=== PATIENT | male | born 1950 | race Caucasian/White ===

== ENCOUNTER 2020-06-29 07:53 | Outpatient (REF) | payer MEDICARE, SELFPAY ==
[2020-06-29 09:22] LABS: MANUAL DIFF FLAG NO
[2020-06-29 09:36] LABS: Basophils Absolute Auto 0.1 X10*3/uL (0.0-0.2); Basophils Percent Auto 0.9 % (0-2); Eosinophils Absolute Auto 0.2 X10*3/uL (0.0-0.4); Eosinophils Percent Auto 2.6 % (0-4); Hematocrit 45.7 % (42-52); Hemoglobin 14.9 g/dl (14.0-18.0); Imm Gran Abs Auto 0.03 X10*3/uL (0.00-0.03); Imm Gran Pct Auto 0.4 % (0.0-0.4); Lymphocytes Absolute Auto 1.9 X10*3/uL (1.2-4.9); Lymphocytes Percent Auto 27.2 % (20-40); Mean Corpuscular HGB Conc 32.6 g/dl (31.0-36.0); Mean Corpuscular Hemoglobin 31.2 pg (27.0-33.0); Mean Corpuscular Volume 95.6 fL (80-98); Mean Platelet Volume 10.4 fL (9.4-12.4); Monocytes Absolute Auto 0.6 X10*3/uL (0.1-1.2); Neutrophils Absolute Auto 4.3 X10*3/uL (2.0-8.3); Neutrophils Percent Auto 60.9 % (45-73); Platelet Count 196 X10*3/uL (160-400); Red Blood Count 4.78 X10*6/uL (4.60-5.80); Red Cell Distribution Width 13.7 % (11.0-16.0)
[2020-06-29 09:44] LABS: Estimated Average Glucose 111 mg/dL; Hemoglobin A1C 136.8139 umol/L; Hemoglobin A1c % 5.5 %
[2020-06-29 10:09] LABS: Alanine Aminotransferase 19 U/L (0-40); Albumin Level 4.3 g/dL (3.5-5.0); Alkaline Phosphatase 60 U/L (39-117); Anion Gap 10 (12-20); Aspartate Amino Transferase 18 U/L (5-37); Bilirubin Total 0.3 mg/dL (0.0-1.0); Blood Urea Nitrogen 14 mg/dL (9-16); Calcium 8.8 mg/dL (8.4-10.2); Carbon Dioxide 28 mmol/L (22-29); Chloride 108 mmol/L (96-108); Cholesterol 185 mg/dL; Estimated Glomerular Filt Rate > 60; Glucose Fasting 114 mg/dL (60-99); HDL Cholesterol 56 mg/dL; LDL Cholesterol Calculated 118 mg/dl; Potassium 4.1 mmol/l (3.3-5.1); Sodium 142 mmol/L (135-145); Total Protein 6.8 g/dL (6.5-8.0); Triglycerides 58 mg/dL
== END 2020-06-29 07:54 | disposition home or self-care (01) ==
LOC: HO.LAB 07:53
PROVIDERS: PCP Internal Medicine Medical Oncology; Visit Provider Internal Medicine Medical Oncology
DX: E78.5 Hyperlipidemia, unspecified (principal); E11.9 Type 2 diabetes mellitus without complications; I10 Essential (primary) hypertension
CPT/HCPCS: 36415; 80053; 80061; 83036; 85025

== ENCOUNTER 2020-09-23 07:59 | Outpatient (REF) | payer MEDICARE, SELFPAY ==
[2020-09-23 09:04] LABS: MANUAL DIFF FLAG NO
[2020-09-23 09:11] LABS: Basophils Absolute Auto 0.1 X10*3/uL (0.0-0.2); Basophils Percent Auto 0.9 % (0-2); Eosinophils Absolute Auto 0.2 X10*3/uL (0.0-0.4); Eosinophils Percent Auto 2.5 % (0-4); Hematocrit 46.2 % (42-52); Hemoglobin 15.3 g/dl (14.0-18.0); Imm Gran Abs Auto 0.01 X10*3/uL (0.00-0.03); Imm Gran Pct Auto 0.1 % (0.0-0.4); Lymphocytes Absolute Auto 1.8 X10*3/uL (1.2-4.9); Lymphocytes Percent Auto 23.1 % (20-40); Mean Corpuscular HGB Conc 33.1 g/dl (31.0-36.0); Mean Corpuscular Volume 93.5 fL (80-98); Monocytes Absolute Auto 0.6 X10*3/uL (0.1-1.2); Monocytes Percent Auto 8.1 % (2-11); Neutrophils Percent Auto 65.3 % (45-73); Platelet Count 167 X10*3/uL (160-400); Red Blood Count 4.94 X10*6/uL (4.60-5.80); Red Cell Distribution Width 13.6 % (11.0-16.0); White Blood Count 7.7 X10*3/uL (4.8-10.8)
[2020-09-23 09:28] LABS: Estimated Average Glucose 108 mg/dL; Hemoglobin A1c % 5.4 %
[2020-09-23 09:42] LABS: Alanine Aminotransferase 20 U/L (0-40); Albumin Level 4.4 g/dL (3.5-5.0); Alkaline Phosphatase 72 U/L (39-117); Anion Gap 12 (12-20); Aspartate Amino Transferase 17 U/L (5-37); Bilirubin Total 0.7 mg/dL (0.0-1.0); Blood Urea Nitrogen 16 mg/dL (9-16); Carbon Dioxide 28 mmol/L (22-29); Chloride 107 mmol/L (96-108); Cholesterol 202 mg/dL; Estimated Glomerular Filt Rate > 60; Glucose Fasting 108 mg/dL (60-99); HDL Cholesterol 55 mg/dL; LDL Cholesterol Calculated 133 mg/dl; Potassium 4.3 mmol/l (3.3-5.1); Sodium 143 mmol/L (135-145); Triglycerides 74 mg/dL
== END 2020-09-23 08:00 | disposition home or self-care (01) ==
LOC: HO.LAB 07:59
PROVIDERS: PCP Internal Medicine Medical Oncology; Visit Provider Internal Medicine Medical Oncology
DX: I10 Essential (primary) hypertension (principal); E78.5 Hyperlipidemia, unspecified; E11.9 Type 2 diabetes mellitus without complications
CPT/HCPCS: 36415; 80053; 80061; 83036; 85025

== ENCOUNTER 2021-01-25 09:00 | Outpatient (REF) | payer MEDICARE, SELFPAY ==
[2021-01-25 09:41] LABS: MANUAL DIFF FLAG NO
[2021-01-25 09:46] LABS: Basophils Absolute Auto 0.1 X10*3/uL (0.0-0.2); Basophils Percent Auto 0.8 % (0-2); Eosinophils Absolute Auto 0.1 X10*3/uL (0.0-0.4); Eosinophils Percent Auto 1.2 % (0-4); Hematocrit 44.1 % (42-52); Hemoglobin 14.9 g/dl (14.0-18.0); Imm Gran Abs Auto 0.02 X10*3/uL (0.00-0.03); Imm Gran Pct Auto 0.3 % (0.0-0.4); Lymphocytes Absolute Auto 1.6 X10*3/uL (1.2-4.9); Lymphocytes Percent Auto 21.5 % (20-40); Mean Corpuscular HGB Conc 33.8 g/dl (31.0-36.0); Mean Corpuscular Hemoglobin 31.4 pg (27.0-33.0); Mean Platelet Volume 10.1 fL (9.4-12.4); Monocytes Absolute Auto 0.5 X10*3/uL (0.1-1.2); Monocytes Percent Auto 7.3 % (2-11); Neutrophils Percent Auto 68.9 % (45-73); Platelet Count 169 X10*3/uL (160-400); Red Blood Count 4.74 X10*6/uL (4.60-5.80); Red Cell Distribution Width 14.1 % (11.0-16.0); White Blood Count 7.3 X10*3/uL (4.8-10.8)
[2021-01-25 10:14] LABS: Alanine Aminotransferase 26 U/L (0-40); Albumin Level 4.4 g/dL (3.5-5.0); Alkaline Phosphatase 72 U/L (39-117); Anion Gap 13 (12-20); Aspartate Amino Transferase 21 U/L (5-37); Bilirubin Total 0.6 mg/dL (0.0-1.0); Blood Urea Nitrogen 16 mg/dL (9-16); Calcium 9.1 mg/dL (8.4-10.2); Carbon Dioxide 26 mmol/L (22-29); Chloride 107 mmol/L (96-108); Cholesterol 209 mg/dL; Estimated Glomerular Filt Rate > 60; Glucose Fasting 130 mg/dL (60-99); HDL Cholesterol 57 mg/dL; LDL Cholesterol Calculated 139 mg/dl; Potassium 4.2 mmol/L (3.3-5.1); Sodium 142 mmol/L (135-145); Triglycerides 65 mg/dL
== END 2021-01-25 09:01 | disposition home or self-care (01) ==
LOC: HO.LAB 09:00
PROVIDERS: PCP Internal Medicine Medical Oncology; Visit Provider Internal Medicine Medical Oncology
DX: I10 Essential (primary) hypertension (principal); E11.9 Type 2 diabetes mellitus without complications; E78.5 Hyperlipidemia, unspecified
CPT/HCPCS: 36415; 80053; 80061; 85025

== ENCOUNTER 2021-07-13 08:31 | Outpatient (REF) | payer MEDICARE, SELFPAY ==
[2021-07-13 08:43] LABS: MANUAL DIFF FLAG NO
[2021-07-13 09:28] LABS: Basophils Absolute Auto 0.1 X10*3/uL (0.0-0.2); Basophils Percent Auto 0.9 % (0-2); Eosinophils Absolute Auto 0.2 X10*3/uL (0.0-0.4); Eosinophils Percent Auto 2.3 % (0-4); Hematocrit 45.7 % (42.0-52.0); Hemoglobin 15.4 g/dl (14.0-18.0); Imm Gran Abs Auto 0.02 X10*3/uL (0.00-0.03); Imm Gran Pct Auto 0.3 % (0.0-0.4); Lymphocytes Absolute Auto 1.8 X10*3/uL (1.2-4.9); Lymphocytes Percent Auto 24.6 % (20-40); Mean Corpuscular HGB Conc 33.7 g/dl (31.0-36.0); Mean Corpuscular Hemoglobin 31.8 pg (27.0-33.0); Mean Corpuscular Volume 94.4 fL (80.0-98.0); Mean Platelet Volume 10.1 fL (9.4-12.4); Monocytes Absolute Auto 0.6 X10*3/uL (0.1-1.2); Monocytes Percent Auto 7.7 % (2-11); Neutrophils Absolute Auto 4.73 x10*3/uL (2.0-8.3); Neutrophils Percent Auto 64.2 % (45-73); Platelet Count 172 X10*3/uL (160-400); Red Blood Count 4.84 X10*6/uL (4.60-5.80); Red Cell Distribution Width 13.8 % (11.0-16.0); White Blood Count 7.4 X10*3/uL (4.8-10.8)
[2021-07-13 09:37] LABS: Estimated Average Glucose 111 mg/dL; Hemoglobin A1c % 5.5 %
[2021-07-13 10:01] LABS: Alanine Aminotransferase 33 U/L (0-40); Albumin Level 4.5 g/dL (3.5-5.0); Alkaline Phosphatase 70 U/L (39-117); Anion Gap 13 (12-20); Aspartate Amino Transferase 26 U/L (5-37); Bilirubin Total 0.8 mg/dL (0.0-1.0); Blood Urea Nitrogen 18 mg/dL (9-16); Calcium 9.6 mg/dL (8.4-10.2); Carbon Dioxide 28 mmol/L (22-29); Chloride 106 mmol/L (96-108); Cholesterol 223 mg/dL; Estimated Glomerular Filt Rate > 60; Glucose Fasting 95 mg/dL (60-99); HDL Cholesterol 55 mg/dL; LDL Cholesterol Calculated 153 mg/dl; Potassium 5.3 mmol/L (3.3-5.1); Sodium 142 mmol/L (135-145); Total Protein 7.1 g/dL (6.5-8.0); Triglycerides 75 mg/dL
[2021-07-13 10:24] LABS: Prostate Specific Antigen 0.27 ng/mL (<0.05-4.0)
== END 2021-07-13 08:32 | disposition home or self-care (01) ==
LOC: HO.LAB 08:31
PROVIDERS: PCP Internal Medicine Medical Oncology; Visit Provider Internal Medicine Medical Oncology
DX: I10 Essential (primary) hypertension (principal); E11.9 Type 2 diabetes mellitus without complications; E78.5 Hyperlipidemia, unspecified; Z12.5 Encounter for screening for malignant neoplasm of prostate
CPT/HCPCS: 36415; 80053; 80061; 83036; 84153; 85025

== ENCOUNTER 2021-12-27 08:01 | Outpatient (REF) | payer MEDICARE, SELFPAY ==
[2021-12-27 08:17] LABS: MANUAL DIFF FLAG NO
[2021-12-27 08:33] LABS: Basophils Absolute Auto 0.1 X10*3/uL (0.0-0.2); Basophils Percent Auto 0.9 % (0-2); Eosinophils Absolute Auto 0.1 X10*3/uL (0.0-0.4); Eosinophils Percent Auto 1.7 % (0-4); Hematocrit 45.9 % (42.0-52.0); Hemoglobin 15.3 g/dl (14.0-18.0); Imm Gran Abs Auto 0.02 X10*3/uL (0.00-0.03); Imm Gran Pct Auto 0.3 % (0.0-0.4); Lymphocytes Absolute Auto 1.9 X10*3/uL (1.2-4.9); Lymphocytes Percent Auto 27.4 % (20-40); Mean Corpuscular HGB Conc 33.3 g/dl (31.0-36.0); Mean Corpuscular Hemoglobin 31.2 pg (27.0-33.0); Mean Corpuscular Volume 93.7 fL (80.0-98.0); Monocytes Absolute Auto 0.5 X10*3/uL (0.1-1.2); Monocytes Percent Auto 7.6 % (2-11); Neutrophils Absolute Auto 4.3 x10*3/uL (2.0-8.3); Neutrophils Percent Auto 62.1 % (45-73); Platelet Count 177 X10*3/uL (160-400); Red Cell Distribution Width 13.9 % (11.0-16.0)
[2021-12-27 08:41] LABS: Estimated Average Glucose 111 mg/dL; Hemoglobin A1c % 5.5 %
[2021-12-27 08:58] LABS: Alanine Aminotransferase 21 U/L (0-40); Albumin Level 4.2 g/dL (3.5-5.0); Alkaline Phosphatase 61 U/L (39-117); Anion Gap 13 (12-20); Aspartate Amino Transferase 18 U/L (5-37); Bilirubin Total 0.7 mg/dL (0.0-1.0); Blood Urea Nitrogen 12 mg/dL (9-16); Calcium 9.4 mg/dL (8.4-10.2); Carbon Dioxide 25 mmol/L (22-29); Chloride 107 mmol/L (96-108); Cholesterol 192 mg/dL; Estimated Glomerular Filt Rate > 60; Glucose Random 131 mg/dL (60-115); HDL Cholesterol 56 mg/dL; LDL Cholesterol Calculated 127 mg/dl; Potassium 4.2 mmol/L (3.3-5.1); Sodium 141 mmol/L (135-145); Triglycerides 49 mg/dL
[2021-12-27 09:19] LABS: Prostate Specific Antigen 0.31 ng/mL (<0.05-4.0)
== END 2021-12-27 08:02 | disposition home or self-care (01) ==
LOC: HO.LAB 08:01
PROVIDERS: PCP Internal Medicine Medical Oncology; Visit Provider Internal Medicine Medical Oncology
DX: Z12.5 Encounter for screening for malignant neoplasm of prostate (principal); N40.0 Benign prostatic hyperplasia without lower urinary tract symptoms; E66.9 Obesity, unspecified; E11.9 Type 2 diabetes mellitus without complications; E78.5 Hyperlipidemia, unspecified
CPT/HCPCS: 36415; 80053; 80061; 83036; 84153; 85025

== ENCOUNTER 2022-09-27 09:19 | Outpatient (REF) | payer MEDICARE, SELFPAY ==
[2022-09-27 10:31] LABS: MANUAL DIFF FLAG NO
[2022-09-27 10:33] LABS: Basophils Absolute Auto 0.1 X10*3/uL (0.0-0.2); Basophils Percent Auto 1.2 % (0-2); Eosinophils Absolute Auto 0.1 X10*3/uL (0.0-0.4); Eosinophils Percent Auto 1.8 % (0-4); Hematocrit 45.6 % (42.0-52.0); Hemoglobin 15.5 g/dl (14.0-18.0); Imm Gran Abs Auto 0.02 X10*3/uL (0.00-0.03); Imm Gran Pct Auto 0.3 % (0.0-0.4); Lymphocytes Absolute Auto 1.7 X10*3/uL (1.2-4.9); Lymphocytes Percent Auto 24.9 % (20-40); Mean Corpuscular Hemoglobin 30.9 pg (27.0-33.0); Mean Corpuscular Volume 90.8 fL (80.0-98.0); Mean Platelet Volume 10.5 fL (9.4-12.4); Monocytes Absolute Auto 0.5 X10*3/uL (0.1-1.2); Monocytes Percent Auto 7.2 % (2-11); Neutrophils Absolute Auto 4.4 x10*3/uL (2.0-8.3); Neutrophils Percent Auto 64.6 % (45-73); Platelet Count 187 X10*3/uL (160-400); Red Blood Count 5.02 X10*6/uL (4.60-5.80); Red Cell Distribution Width 13.4 % (11.0-16.0); White Blood Count 6.8 X10*3/uL (4.8-10.8)
[2022-09-27 10:56] LABS: Alanine Aminotransferase 19 U/L (0-40); Albumin Level 4.2 g/dL (3.5-5.0); Alkaline Phosphatase 57 U/L (39-117); Anion Gap 12 (12-20); Aspartate Amino Transferase 17 U/L (5-37); Bilirubin Total 0.9 mg/dL (0.0-1.0); Blood Urea Nitrogen 14 mg/dL (9-16); Calcium 9.1 mg/dL (8.4-10.2); Carbon Dioxide 26 mmol/L (22-29); Chloride 106 mmol/L (96-108); Cholesterol 206 mg/dL; Estimated Glomerular Filt Rate > 60; Glucose Fasting 131 mg/dL (60-99); HDL Cholesterol 51 mg/dL; LDL Cholesterol Calculated 138 mg/dl; Potassium 3.7 mmol/L (3.3-5.1); Sodium 140 mmol/L (135-145); Total Protein 6.7 g/dL (6.5-8.0); Triglycerides 88 mg/dL
[2022-09-27 11:04] LABS: Prostate Specific Antigen 0.36 ng/mL (<0.05-4.0)
[2022-09-27 14:35] LABS: Creatinine Urine 151.41 mg/dL; Microalbum/Creatinine Ratio Ur 21.1 ug/mg cr
== END 2022-09-27 09:20 | disposition home or self-care (01) ==
LOC: HO.10HDL 09:19
PROVIDERS: Visit Provider Internal Medicine Medical Oncology
DX: Z12.5 Encounter for screening for malignant neoplasm of prostate (principal); I10 Essential (primary) hypertension; E11.9 Type 2 diabetes mellitus without complications; N40.0 Benign prostatic hyperplasia without lower urinary tract symptoms
CPT/HCPCS: 36415; 80053; 80061; 82043; 84153; 85025

== ENCOUNTER 2022-12-26 09:11 | Outpatient (REF) | payer MEDICARE, SELFPAY ==
[2022-12-26 09:24] LABS: MANUAL DIFF FLAG NO
[2022-12-26 10:37] LABS: Basophils Absolute Auto 0.1 X10*3/uL (0.0-0.2); Basophils Percent Auto 1.1 % (0-2); Eosinophils Absolute Auto 0.2 X10*3/uL (0.0-0.4); Eosinophils Percent Auto 2.3 % (0-4); Hematocrit 45.8 % (42.0-52.0); Hemoglobin 15.1 g/dl (14.0-18.0); Imm Gran Abs Auto 0.02 X10*3/uL (0.00-0.03); Imm Gran Pct Auto 0.3 % (0.0-0.4); Lymphocytes Absolute Auto 1.9 X10*3/uL (1.2-4.9); Mean Corpuscular Hemoglobin 30.7 pg (27.0-33.0); Mean Corpuscular Volume 93.1 fL (80.0-98.0); Mean Platelet Volume 10.7 fL (9.4-12.4); Monocytes Absolute Auto 0.6 X10*3/uL (0.1-1.2); Monocytes Percent Auto 7.9 % (2-11); Neutrophils Absolute Auto 4.7 x10*3/uL (2.0-8.3); Neutrophils Percent Auto 62.4 % (45-73); Platelet Count 196 X10*3/uL (160-400); Red Blood Count 4.92 X10*6/uL (4.60-5.80); Red Cell Distribution Width 13.8 % (11.0-16.0); White Blood Count 7.5 X10*3/uL (4.8-10.8)
[2022-12-26 10:45] LABS: Estimated Average Glucose 114 mg/dL; Hemoglobin A1c % 5.6 %
[2022-12-26 11:11] LABS: Alanine Aminotransferase 15 U/L (0-40); Albumin Level 4.1 g/dL (3.5-5.0); Alkaline Phosphatase 64 U/L (39-117); Anion Gap 13 (12-20); Aspartate Amino Transferase 15 U/L (5-37); Bilirubin Total 0.8 mg/dL (0.0-1.0); Blood Urea Nitrogen 16 mg/dL (9-16); Calcium 8.8 mg/dL (8.4-10.2); Carbon Dioxide 25 mmol/L (22-29); Chloride 108 mmol/L (96-108); Cholesterol 190 mg/dL; Estimated Glomerular Filt Rate > 60; Glucose Fasting 115 mg/dL (60-99); HDL Cholesterol 45 mg/dL; LDL Cholesterol Calculated 133 mg/dl; Potassium 4.4 mmol/L (3.3-5.1); Sodium 142 mmol/L (135-145); Total Protein 6.3 g/dL (6.5-8.0); Triglycerides 61 mg/dL
[2022-12-26 11:33] LABS: Creatinine Urine 194.29 mg/dL; Microalbum/Creatinine Ratio Ur 6.6 ug/mg cr
== END 2022-12-26 09:12 | disposition home or self-care (01) ==
LOC: HO.LAB 09:11
PROVIDERS: PCP Internal Medicine Medical Oncology; Visit Provider Internal Medicine Medical Oncology
DX: Z00.00 Encounter for general adult medical examination without abnormal findings (principal); I10 Essential (primary) hypertension; E78.5 Hyperlipidemia, unspecified; E11.9 Type 2 diabetes mellitus without complications
CPT/HCPCS: 36415; 80053; 80061; 82043; 83036; 85025

== ENCOUNTER 2023-03-27 07:47 | Outpatient (REF) | payer MEDICARE, SELFPAY ==
[2023-03-27 08:09] LABS: MANUAL DIFF FLAG NO
[2023-03-27 09:08] LABS: Basophils Absolute Auto 0.1 X10*3/uL (0.0-0.2); Basophils Percent Auto 0.9 % (0-2); Eosinophils Absolute Auto 0.1 X10*3/uL (0.0-0.4); Eosinophils Percent Auto 0.8 % (0-4); Hematocrit 47.8 % (42.0-52.0); Imm Gran Abs Auto 0.03 X10*3/uL (0.00-0.03); Imm Gran Pct Auto 0.4 % (0.0-0.4); Lymphocytes Absolute Auto 1.6 X10*3/uL (1.2-4.9); Lymphocytes Percent Auto 18.7 % (20-40); Mean Corpuscular HGB Conc 33.5 g/dl (31.0-36.0); Mean Corpuscular Hemoglobin 30.9 pg (27.0-33.0); Mean Corpuscular Volume 92.3 fL (80.0-98.0); Mean Platelet Volume 10.3 fL (9.4-12.4); Monocytes Absolute Auto 0.6 X10*3/uL (0.1-1.2); Neutrophils Absolute Auto 6.2 x10*3/uL (2.0-8.3); Neutrophils Percent Auto 72.2 % (45-73); Platelet Count 189 X10*3/uL (160-400); Red Blood Count 5.18 X10*6/uL (4.60-5.80); Red Cell Distribution Width 13.9 % (11.0-16.0); White Blood Count 8.6 X10*3/uL (4.8-10.8)
[2023-03-27 09:15] LABS: Estimated Average Glucose 111 mg/dL; Hemoglobin A1C 150.3628 umol/L; Hemoglobin A1c % 5.5 %
[2023-03-27 09:47] LABS: Alanine Aminotransferase 19 U/L (0-40); Albumin Level 4.2 g/dL (3.5-5.0); Alkaline Phosphatase 64 U/L (39-117); Anion Gap 14 (12-20); Aspartate Amino Transferase 15 U/L (5-37); Bilirubin Total 0.5 mg/dL (0.0-1.0); Blood Urea Nitrogen 14 mg/dL (9-16); Calcium 9.3 mg/dL (8.4-10.2); Carbon Dioxide 25 mmol/L (22-29); Chloride 107 mmol/L (96-108); Estimated Glomerular Filt Rate > 60; Glucose Random 143 mg/dL (60-115); Potassium 4.1 mmol/L (3.3-5.1); Sodium 142 mmol/L (135-145); Total Protein 7.2 g/dL (6.5-8.0)
== END 2023-03-27 07:48 | disposition home or self-care (01) ==
LOC: HO.LAB 07:47
PROVIDERS: PCP Internal Medicine Medical Oncology; Visit Provider Internal Medicine Medical Oncology
DX: I10 Essential (primary) hypertension (principal); E11.9 Type 2 diabetes mellitus without complications
CPT/HCPCS: 36415; 80053; 83036; 85025

== ENCOUNTER 2023-04-13 12:23 | Outpatient (REF) | payer MEDICARE, SELFPAY | END 2023-04-13 12:24 | disposition home or self-care (01) | LOC: HO.LAB 12:23 | PROVIDERS: PCP Internal Medicine Medical Oncology; Visit Provider Internal Medicine Medical Oncology | DX: Z13.89 Encounter for screening for other disorder (principal) ==

== ENCOUNTER 2024-03-07 09:08 | Outpatient (REF) | payer MEDICARE, SELFPAY ==
[2024-03-07 09:25] LABS: MANUAL DIFF FLAG NO
[2024-03-07 09:45] LABS: Basophils Absolute Auto 0.1 X10*3/uL (0.0-0.2); Basophils Percent Auto 0.8 % (0-2); Eosinophils Absolute Auto 0.1 X10*3/uL (0.0-0.4); Eosinophils Percent Auto 1.4 % (0-4); Imm Gran Abs Auto 0.03 X10*3/uL (0.00-0.03); Imm Gran Pct Auto 0.4 % (0.0-0.4); Lymphocytes Absolute Auto 1.8 X10*3/uL (1.2-4.9); Lymphocytes Percent Auto 23.8 % (20-40); Mean Corpuscular Hemoglobin 31.8 pg (27.0-33.0); Mean Corpuscular Volume 93.4 fL (80.0-98.0); Mean Platelet Volume 9.9 fL (9.4-12.4); Monocytes Absolute Auto 0.5 X10*3/uL (0.1-1.2); Monocytes Percent Auto 5.9 % (2-11); Neutrophils Absolute Auto 5.2 x10*3/uL (2.0-8.3); Neutrophils Percent Auto 67.7 % (45-73); Platelet Count 172 X10*3/uL (160-400); Red Blood Count 5.03 X10*6/uL (4.60-5.80); Red Cell Distribution Width 14.5 % (11.0-16.0); White Blood Count 7.7 X10*3/uL (4.8-10.8)
[2024-03-07 09:58] LABS: Estimated Average Glucose 120 mg/dL; Hemoglobin A1c % 5.8 % (<6.0)
[2024-03-07 10:22] LABS: Creatinine Urine 162.22 mg/dL
[2024-03-07 10:26] LABS: Alanine Aminotransferase 16 U/L (0-40); Albumin Level 4.3 g/dL (3.5-5.0); Alkaline Phosphatase 66 U/L (39-117); Anion Gap 12 (12-20); Aspartate Amino Transferase 15 U/L (5-37); Bilirubin Total 0.6 mg/dL (0.0-1.0); Blood Urea Nitrogen 15 mg/dL (9-16); Calcium 9.3 mg/dL (8.4-10.2); Carbon Dioxide 28 mmol/L (22-29); Chloride 108 mmol/L (96-108); Cholesterol 193 mg/dL (<200); Estimated Glomerular Filt Rate > 60; Glucose Fasting 116 mg/dL (60-99); HDL Cholesterol 57 mg/dL (>40); LDL Cholesterol Calculated 124 mg/dL (<100); Potassium 4.7 mmol/L (3.3-5.1); Sodium 143 mmol/L (135-145); Total Protein 7.3 g/dL (6.5-8.0); Triglycerides 60 mg/dL (<150)
[2024-03-07 10:43] LABS: Prostate Specific Antigen 0.37 ng/mL (<0.05-4.0)
== END 2024-03-07 09:09 | disposition home or self-care (01) ==
LOC: HO.LAB 09:08
PROVIDERS: PCP Internal Medicine Medical Oncology; Visit Provider Internal Medicine Medical Oncology
DX: I10 Essential (primary) hypertension (principal); E11.9 Type 2 diabetes mellitus without complications; E66.9 Obesity, unspecified; N40.0 Benign prostatic hyperplasia without lower urinary tract symptoms; Z12.5 Encounter for screening for malignant neoplasm of prostate
CPT/HCPCS: 36415; 80053; 80061; 82043; 82570; 83036; 84153; 85025

== ENCOUNTER 2024-03-26 04:03 | Emergency (ER) | payer MEDICARE, SELFPAY ==
--- NOTE | ~2024-03-26 | CT_ITS ---
EXAMINATION: CT ANGIOGRAM NECK AND HEAD CLINICAL INFORMATION: Dysarthria. COMPARISON: None available. TECHNIQUE: Test bolus sequences followed by administration of 70 mL of Omnipaque 350 intravenous contrast. Helical imaging was performed in the axial plane of the neck. The data was processed at the lead technologist in cytogenetics workstation for generation of MIP sequences. Three-dimensional volume rendered reformatted images were also generated at an offline 3-D workstation. This CT examination was performed using dose optimization techniques as appropriate, variously including the following: *Automated exposure control *Adjustment of mA and/or kV according to patient size (this includes techniques or standardized protocols for targeted exams where dose is matched to indication/reason for exam; i.e. extremities or head) *Use of iterative reconstruction technique DLP: 1733.85 mGy-cm FINDINGS: CT HEAD: There is cerebral volume loss with prominence of the lateral and the third ventricles. The cortical sulci are widened appropriately. The fourth ventricle and basal cisterns are normally outlined. There is moderate bilateral periventricular and central white matter diminished attenuation. 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 There is no acute territorial defect, hemorrhage or midline shift. The extra-axial spaces are unremarkable. Calvarium/scalp: Intact. Maxillofacial sinuses and mastoids: Clear as visualized. CTA NECK AND HEAD: There is mild atherosclerotic plaque of the aortic arch. A three-vessel branching pattern from the aortic arch is noted. The aortic arch branch vessels are patent. There is mild plaque at the left carotid bulb without significant narrowing. The common carotid, internal and external carotid arteries are patent. The left vertebral artery is dominant. Both vertebral arteries are patent. There is mild calcific plaque of the intracranial internal carotid arteries without significant narrowing. The middle cerebral and anterior cerebral arteries are patent. The distal vertebral arteries, basilar artery and branches and posterior cerebral arteries are patent. There is no evidence for aneurysm. CT/CT angio head neck IMPRESSION: 1. No acute intracranial abnormality. 2. There is cerebral volume loss and there is moderate white matter changes that are nonspecific, but may represent chronic small vessel ischemic changes. 3. There is mild atherosclerotic plaque of the aortic arch, left carotid bulb and intracranial internal carotid arteries without significant narrowing. 4. There is no evidence of significant stenosis, occlusion or aneurysm of the cervical and intracranial arterial vasculature.
[2024-03-26 04:05] VITALS: BP 186/96; PULSE 61; RESP 18; TEMP 36.8; O2SAT 96; BMI 32.0
--- NOTE | 2024-03-26 04:14 | ED.NEUROSD ---
HPI - Neuro Symptoms/Deficit General Chief Complaint: Neuro Symptoms/Deficit Stated Complaint: pt states to have had a mini stroke Time Seen by Provider: 03/26/24 04:14 Source: patient Mode of arrival: ambulatory Limitations: no limitations History of Present Illness ED Provider: alejandro LANDEROS Narrative: Patient is 74 years old with history of hypertension chronic smoker at 19:00 last night patient had a coughing bout after that patient had beef episode of slurred speech patient was not articulating right while speaking no other deficits by the time patient arrived to the ER there was no deficit noticed no facial asymmetry no headache on arrival blood pressure was 186/96 repeat 159/81 patient does not take any aspirin Related Data Previous Rx's ?Medication ?Instructions ?Recorded aspirin 81 mg tablet,delayed 81 mg PO DAILY #90 tabs 03/26/24 release (Reynaldo Low Dose Aspirin) Allergies Allergy/AdvReac Type Severity Reaction Status Date / Time No Known Allergies Allergy Unverified 03/26/24 04:05 [No Known Allergies*] PCN Allergy Unknown ? Uncoded 03/26/24 04:05 reaction/mother had anaphylactic reaction Review of Systems Review of Systems: Yes all other systems are reviewed and are negative [facility] Past Medical History Medical History (Updated 03/26/24 @ 06:37 by Barney Guo MD) Hypertension Social History Social History Alcohol intake: current Alcohol intake frequency: 3 or more drinks per day Alcohol type: hard liquor Smoked in Last 30 Days: Yes Use of substances other than those prescribed or required for medical reasons: No Advance Directives: No Advance Directives Information Provided: Yes Physical Exam Vital Signs: Vital Signs: Last Vital Signs Temp 97.5 F 03/26/24 06:47 Pulse 60 03/26/24 06:47 Resp 18 03/26/24 06:47 BP 168/95 H 03/26/24 06:47 Pulse Ox 95 03/26/24 06:47 O2 Del Method Room Air 03/26/24 06:47 BMI result Body Mass Index 32.0 Appearance: Alert. Oriented X3. No acute distress. Eyes: PERRLA, No Nystagmus ENT: Pharynx normal. Oral Mucosa moist Neck: Normal inspection. Neck supple. CVS: Normal heart rate and rhythm. Pulses normal. Respiratory: No respiratory distress. Equal air entry bilateral, no wheezing/rales/rhonchi Abdomen: Soft and nontender. Bowel sounds are present, no mass palpable, no CVA tenderness Skin: Skin warm and dry. Normal skin color. Normal skin turgor. Extremities: No lower extremity edema. No calf tenderness Neuro: Oriented X 3. No motor deficit. No sensory deficit.No cerebellar signs , cranial nerves II-XII intact normal speech articulation and comprehension Medications Administered Discontinued Medications Generic Name Dose Route Start Last Admin Trade Name Salinasq PRN Reason Stop Dose Admin Aspirin 81 mg 03/26/24 06:26 03/26/24 06:41 Aspirin 81 Mg Tab.Chew PO 03/26/24 06:27 81 mg ONCE ONE Administration Iohexol 70 ml 03/26/24 05:00 03/26/24 05:00 Iohexol 350 Mg/Ml 100 Ml Infus..Btl IV 03/26/24 05:01 70 ml ONCE ONE Administration Medical Decision Making Medical Decision Making [facility] Narrative: Patient's transient slurred speech with normal comprehension no speech abnormality noticed after coughing bout, after arrival in the ER possible TIA/mucus in the throat CTA negative for acute will prescribe patient aspirin Differential Diagnosis Differential Diagnoses: The differential diagnosis associated with the presentation includes TIA/CVA/ Admission/Observation Consideration of admission/observation: Escalation of care including admission/observation considered Lab Data [facility] Lab Attestation statement: I reviewed the patient's lab results. 03/26/24 04:24 03/26/24 04:24 Labs: Lab Results 03/26/24 Range/Units 04:24 WBC 7.2 (4.8-10.8) X10*3/uL RBC 4.87 (4.60-5.80) X10*6/uL Hgb 15.8 (14.0-18.0) g/dl Hct 44.8 (42.0-52.0) % MCV 92.0 (80.0-98.0) fL MCH 32.4 (27.0-33.0) pg MCHC 35.3 (31.0-36.0) g/dl RDW 14.6 (11.0-16.0) % Plt Count 156 L (160-400) X10*3/uL MPV 9.8 (9.4-12.4) fL Immature Gran % (Auto) 0.3 (0.0-0.4) % Neut % (Auto) 53.5 (45-73) % Lymph % (Auto) 33.9 (20-40) % [place] % (Auto) 8.4 (2-11) % Eos % (Auto) 2.8 (0-4) % Baso % (Auto) 1.1 (0-2) % Lymph # (Auto) 2.4 (1.2-4.9) X10*3/uL [place] # (Auto) 0.6 (0.1-1.2) X10*3/uL Eos # (Auto) 0.2 (0.0-0.4) X10*3/uL Baso # (Auto) 0.1 (0.0-0.2) X10*3/uL Abs Immat Gran (auto) 0.02 (0.00-0.03) X10*3/uL Absolute Neuts (auto) 3.8 (2.0-8.3) x10*3/uL Absolute Nucleated RBC 0.000 (0.0-0.012) X10*3/uL Nucleated RBC % (auto) 0.0 (0.0-0.2) /100WBC PT 11.0 L (11.1-13.3) SEC INR 0.9 (0.9-1.1) APTT 33.2 (26.0-36.8) SEC Sodium 143 (135-145) mmol/L Potassium 3.7 D (3.3-5.1) mmol/L Chloride 110 H (96-108) mmol/L Carbon Dioxide 23 (22-29) mmol/L Anion Gap 14 (12-20) BUN 14 (9-16) mg/dL Creatinine 0.94 (0.5-1.4) mg/dL Estim Creat Clear Calc 76.6 Estimated GFR > 60 Random Glucose 133 H (60-115) mg/dL Calcium 9.4 (8.4-10.2) mg/dL Total Bilirubin 0.3 (0.0-1.0) mg/dL AST 17 (5-37) U/L ALT 18 (0-40) U/L Alkaline Phosphatase 68 (39-117) U/L Total Protein 7.1 (6.5-8.0) g/dL Albumin 4.2 (3.5-5.0) g/dL Independent Interpretation I performed an independent interpretation of an: EKG and CT Scan Interpretation: Normal sinus rhythm heart rate 60 beats per minute normal interval normal axis no acute ST T wave changes Radiology Impression Discussion of test interpretation with radiology: I have reviewed the radiologist's reading. NIH Stroke Scale Internal: Initial- Upon Arrival Level of Consciousness: Alert Level of Consciousness Questions: Answers both questions correctly Level of Consciousness Commands: Performs both tasks correctly Best Gaze: Normal Visual: No visual loss Facial Palsy: Normal Motor Arm (Right): No drift Motor Arm (Left): No drift Motor Leg (Right): No drift Motor Leg (Left): No drift Limb Ataxia: Absent Sensory: Normal Best Language: No aphasia Dysarthia: Normal Extinction and Inattention: No abnormality Score: 0 Discharge Plan Discharge Clinical Impression: Transient cerebral ischemia Patient Disposition: Home, Self-Care Instructions: Transient Ischemic Attack (ED) Additional Instructions: Take baby aspirin daily Follow with neurologist/PCP Stop smoking Prescriptions: New aspirin [Reynaldo Low Dose Aspirin] 81 mg tablet,delayed release (DR/EC) 81 mg PO DAILY Qty: 90 0RF Referrals: Stephen Tony MD [Physician] - 1 week Interventions: ED Discharge Assessment Last Done: 03/26/24 06:47 Discharge Date/Time: 03/26/24 06:48 Print Language: Luxembourgish
--- NOTE | 2024-03-26 04:21 | ECG_ITS ---
Test Reason : NEURO SYMPTOMS Blood Pressure : / mmHG Vent. Rate : 060 BPM Atrial Rate : 060 BPM P-R Int : 160 ms QRS Dur : 100 ms QT Int : 400 ms P-R-T Axes : 000 -04 032 degrees QTc Int : 400 ms Normal sinus rhythm Normal ECG No previous ECGs available Referred By: Barney Guo Electronically Signed By:SULLY ROBERTS MD
[2024-03-26 04:30] LABS: MANUAL DIFF FLAG NO
[2024-03-26 04:31] LABS: Basophils Absolute Auto 0.1 X10*3/uL (0.0-0.2); Basophils Percent Auto 1.1 % (0-2); Eosinophils Absolute Auto 0.2 X10*3/uL (0.0-0.4); Eosinophils Percent Auto 2.8 % (0-4); Hematocrit 44.8 % (42.0-52.0); Hemoglobin 15.8 g/dl (14.0-18.0); Imm Gran Abs Auto 0.02 X10*3/uL (0.00-0.03); Imm Gran Pct Auto 0.3 % (0.0-0.4); Lymphocytes Absolute Auto 2.4 X10*3/uL (1.2-4.9); Lymphocytes Percent Auto 33.9 % (20-40); Mean Corpuscular HGB Conc 35.3 g/dl (31.0-36.0); Mean Corpuscular Hemoglobin 32.4 pg (27.0-33.0); Mean Platelet Volume 9.8 fL (9.4-12.4); Monocytes Absolute Auto 0.6 X10*3/uL (0.1-1.2); Monocytes Percent Auto 8.4 % (2-11); Neutrophils Absolute Auto 3.8 x10*3/uL (2.0-8.3); Neutrophils Percent Auto 53.5 % (45-73); Platelet Count 156 X10*3/uL (160-400); Red Blood Count 4.87 X10*6/uL (4.60-5.80); Red Cell Distribution Width 14.6 % (11.0-16.0); White Blood Count 7.2 X10*3/uL (4.8-10.8)
[2024-03-26 04:37] LABS: INTERNATIONAL NORM RATIO 0.9 (0.9-1.1)
[2024-03-26 04:39] LABS: Partial Thromboplastin Time 33.2 SEC (26.0-36.8)
[2024-03-26 04:46] LABS: Alanine Aminotransferase 18 U/L (0-40); Albumin Level 4.2 g/dL (3.5-5.0); Alkaline Phosphatase 68 U/L (39-117); Anion Gap 14 (12-20); Aspartate Amino Transferase 17 U/L (5-37); Bilirubin Total 0.3 mg/dL (0.0-1.0); Blood Urea Nitrogen 14 mg/dL (9-16); Calcium 9.4 mg/dL (8.4-10.2); Carbon Dioxide 23 mmol/L (22-29); Chloride 110 mmol/L (96-108); Creatinine Clr Calc Pharmacy 76.6; Estimated Glomerular Filt Rate > 60; Glucose Random 133 mg/dL (60-115); Potassium 3.7 mmol/L (3.3-5.1); Sodium 143 mmol/L (135-145); Total Protein 7.1 g/dL (6.5-8.0)
[2024-03-26] MEDS: iohexoL 350 MG/ML 100 ML INFUS..BTL 70 ML IV (05:00)
[2024-03-26 05:05] VITALS: BP 159/81; PULSE 60; RESP 20; TEMP 36.4; O2SAT 94
[2024-03-26] MEDS: Aspirin 81 MG TAB.CHEW PO (06:41)
[2024-03-26 06:47] VITALS: BP 168/95; PULSE 60; RESP 18; TEMP 36.4; O2SAT 95
== END 2024-03-26 06:48 | disposition home or self-care (01) ==
PROVIDERS: Emergency Provider Internal Medicine
DX: G45.9 Transient cerebral ischemic attack, unspecified (principal); R05.9 Cough, unspecified; R47.1 Dysarthria and anarthria; F17.200 Nicotine dependence, unspecified, uncomplicated; Z79.899 Other long term (current) drug therapy
CPT/HCPCS: 36415; 70496; 70498; 80053; 85025; 85610; 85730; 93005; 99284; 99285; Q9967

== ENCOUNTER → 2024-03-26 04:21 | Outpatient (BNV) | payer MEDICARE, SELFPAY | PROVIDERS: Emergency Provider Internal Medicine; Visit Provider Internal Medicine Cardiovascular Disease | DX: R47.1 Dysarthria and anarthria (principal) | CPT/HCPCS: 93010 ==

== ENCOUNTER 2024-04-18 08:49 | Outpatient (REF) | payer MEDICARE, SELFPAY ==
--- NOTE | ~2024-04-18 | XR_ITS ---
EXAMINATION: XR CHEST CLINICAL INFORMATION: Cough COMPARISON: None available. TECHNIQUE: 2 views of the chest were obtained. FINDINGS: No significant abnormality is noted involving the heart, lungs, mediastinum, bony thorax or soft tissues. The aorta is unfolded, degenerative changes are present in the spine. No consolidations, lung masses or pleural effusions. XR/XR chest 2V IMPRESSION: Unremarkable examination.
[2024-04-18 09:04] LABS: MANUAL DIFF FLAG NO
[2024-04-18 09:37] LABS: Basophils Absolute Auto 0.1 X10*3/uL (0.0-0.2); Basophils Percent Auto 0.8 % (0-2); Eosinophils Absolute Auto 0.1 X10*3/uL (0.0-0.4); Eosinophils Percent Auto 1.2 % (0-4); Hematocrit 46.4 % (42.0-52.0); Hemoglobin 15.8 g/dl (14.0-18.0); Imm Gran Abs Auto 0.04 X10*3/uL (0.00-0.03); Imm Gran Pct Auto 0.3 % (0.0-0.4); Lymphocytes Absolute Auto 1.5 X10*3/uL (1.2-4.9); Lymphocytes Percent Auto 12.9 % (20-40); Mean Corpuscular HGB Conc 34.1 g/dl (31.0-36.0); Mean Corpuscular Hemoglobin 31.9 pg (27.0-33.0); Mean Corpuscular Volume 93.5 fL (80.0-98.0); Mean Platelet Volume 10.4 fL (9.4-12.4); Monocytes Percent Auto 8.3 % (2-11); Neutrophils Percent Auto 76.5 % (45-73); Platelet Count 172 X10*3/uL (160-400); Red Blood Count 4.96 X10*6/uL (4.60-5.80); Red Cell Distribution Width 13.6 % (11.0-16.0); White Blood Count 11.7 X10*3/uL (4.8-10.8)
[2024-04-18 10:09] LABS: Alanine Aminotransferase 10 U/L (0-40); Albumin Level 4.2 g/dL (3.5-5.0); Alkaline Phosphatase 71 U/L (39-117); Anion Gap 11 (12-20); Aspartate Amino Transferase 10 U/L (5-37); Bilirubin Total 0.8 mg/dL (0.0-1.0); Blood Urea Nitrogen 12 mg/dL (9-16); Calcium 9.7 mg/dL (8.4-10.2); Carbon Dioxide 30 mmol/L (22-29); Chloride 107 mmol/L (96-108); Cholesterol 167 mg/dL (<200); Estimated Glomerular Filt Rate > 60; Glucose Fasting 129 mg/dL (60-99); HDL Cholesterol 42 mg/dL (>40); LDL Cholesterol Calculated 112 mg/dL (<100); Potassium 4.8 mmol/L (3.3-5.1); Sodium 143 mmol/L (135-145); Total Protein 7.3 g/dL (6.5-8.0); Triglycerides 65 mg/dL (<150)
[2024-04-18 10:30] LABS: Prostate Specific Antigen 0.27 ng/mL (<0.05-4.0)
== END 2024-04-18 08:50 | disposition home or self-care (01) ==
LOC: HO.XRAY 08:49
PROVIDERS: PCP Internal Medicine Medical Oncology; Visit Provider Internal Medicine Medical Oncology
DX: R05.9 Cough, unspecified (principal); Z12.5 Encounter for screening for malignant neoplasm of prostate
CPT/HCPCS: 36415; 71046; 80053; 80061; 84153; 85025

== ENCOUNTER 2024-11-19 10:08 | Outpatient (REF) | payer MEDICARE, SELFPAY ==
[2024-11-19 10:32] LABS: MANUAL DIFF FLAG NO
[2024-11-19 10:51] LABS: Basophils Absolute Auto 0.1 X10*3/uL (0.0-0.2); Basophils Percent Auto 1.2 % (0-2); Eosinophils Absolute Auto 0.2 X10*3/uL (0.0-0.4); Hematocrit 46.8 % (42.0-52.0); Hemoglobin 15.9 g/dl (14.0-18.0); Imm Gran Abs Auto 0.03 X10*3/uL (0.00-0.03); Imm Gran Pct Auto 0.4 % (0.0-0.4); Lymphocytes Absolute Auto 2.1 X10*3/uL (1.2-4.9); Mean Corpuscular Hemoglobin 30.5 pg (27.0-33.0); Mean Corpuscular Volume 89.8 fL (80.0-98.0); Mean Platelet Volume 9.8 fL (9.4-12.4); Monocytes Absolute Auto 0.6 X10*3/uL (0.1-1.2); Monocytes Percent Auto 6.8 % (2-11); Neutrophils Absolute Auto 5.5 x10*3/uL (2.0-8.3); Neutrophils Percent Auto 64.6 % (45-73); Platelet Count 201 X10*3/uL (160-400); Red Blood Count 5.21 X10*6/uL (4.60-5.80); Red Cell Distribution Width 13.8 % (11.0-16.0); White Blood Count 8.5 X10*3/uL (4.8-10.8)
--- OUTSIDE RECORDS SUMMARY | 2024-11-19 11:56 | XMS_ITS | Patient Health Record ---
Author Organization [facility] Address [address] [place] [address] Care Team Providers Care Tax Associate Name Role Phone Chirag Vogel MD Primary Care Provider Unavail Chirag Starr Unavailable [phone] Allergies No Known Allergies Reason For Referral No Information Medications Medication SIG (Take, Route, Fr equency, Duration) Notes Start Date End Date Status Lisinopril 40 MG 1 tablet Orally Once a day Active ibuprofen Active Atenolol 100 MG TAKE 1 TABLET BY ASAEL EVERYDAY Oral for 90 Active Social History Tobacco Use: Social History Observation Description Date Details (start date - stop date) Current Smoker NA - NA Tobacco Use/Smoking Question Answer Notes Patient is a current smoker How often do you smoke cigarettes? every day How many cigarettes a day do you smoke? 31 or mo re Alcohol Screen Question Answer Notes Did you have a drink contain ing alcohol in the past year? Yes How often did you have a dri nk containing alcohol in the past year? 4 or more times a week (4 points) How many drinks did you have on a typical day when you were drinking in the past year? 5 or 6 drinks (2 points) How often did you have 6 or more drinks on one occasion in the past year? Never (0 point) Points 6 Interpretation Positive Section Notes: Smoker 2 PPD, 5 drinks a day Problems Problem Type SNOMED Code ICD Code Onset Dates Problem Status W/U Status Risk Notes Problem 869587895 Encounter for screening for malignant neoplasm of colon (Z12.11) Active confirmed Problem 535142899455627 Preprocedural examination (Z01.818) Active confirmed Plan Of Treatment Future Test Test Name Order Date COLONOSCOPY 02/09/2023 Insurance Providers Payer Name Payer Address Payer Phone Subscriber Number Group Number Insured Name Patient Relationship to Insured Coverage Start Date Coverage End Date BLUE [employer] BLUE [facility] [address] [place] [address] [phone] [id number] JOSE HERNANDEZ Self - patient is the insured MEDICARE OF [place] [address] [place] [address] [phone] [id number] JOSE HERNANDEZ Self - patient is the insured Medical (General) History Medical History History ICD Code Hypertension Negative colonoscopy [place] [address] Juan Carlos jones Denies [place],DM,CVA,Lung disease,renal dise ase Surgical History Surgery Date(Month/Year) Back surgery 2019 Having laser surgery on left eye 3 /right eye done 01/2023
--- OUTSIDE RECORDS SUMMARY | 2024-11-19 11:56 | XMS_ITS | Continuity of Care Document ---
Author Name [facility] Organization [facility] Care Team Providers Care Ear Nose Throat Physician Name Role Phone [facility] Unavailable Unavailable Medications Combined list of outpatient medications from Department of Defense and Veterans Affairs facilities.Medications provided include 1) outpatient medications from the last 15 months, and 2) patient-reported medications. Medication Details Route Status Patient Instructions Prescription Expires Prescription Number Last Dispense Date Ordering Provider Order Date Order Qty Source ATENOLOL 100MG TAB TAKE ONE TABLET BY MOUTH TWICE DAILY ORAL ACTIVE RA JAUN BARTON [facility] [place] [facility] LISINOPRIL 40MG TAB TAKE ONE TABLET BY MOUTH ONCE DAILY ORAL ACTIVE RA JAUN BARTON ARTURO 2017 [facility] [place] [facility] Immunizations Combined list of available immunizations from the Department of Defense and Veterans Affairs facilities. Immunization Series Date Given Administered By Site Reaction Lot Number CVX Code Drug Consumer Science Teacher Status Comments Source COVID-19 (MODERNA), MRNA, LNP-S, PF, 100 MCG/0.5 ML DOSE 2 2020 207 complet ed MOD; [id number]; 1 [facility] [place] [facility] COVID-19 (MODERNA), MRNA, LNP-S, PF, 100 MCG/0.5 ML DOSE 1 2020 207 complet ed MOD; [id number]; 1 [facility] [place] [facility] Social History Combined list of available smoking, tobacco, and other social history from Department of Defense and Veterans Affairs facilities. Social History Type Response Date Comment Sourc e Tobacco smoking status NHIS CURRENT SMOKER 05/28/2018 2 pk per day smoker [facility] [place] [facility]
--- OUTSIDE RECORDS SUMMARY | 2024-11-19 11:56 | XMS_ITS ---
Author Organization Chirag Vogel III, MD Address [address] [place] [address] [place] [address] Care Team Providers Care Precision Farming Specialist Name Role Phone Chirag Vogel Primary Care Provider [phone] REASON FOR VISIT Needs call back from Social History Sex Assigned At : Social History Observation Description Sex Assigned At Male Encounters Encounter Location Date Provider Diagnosis Chirag Vogel III, MD [address] [place] [address] [place] [address] 08/21/2024 Chirag Vogel Plan Of Treatment Next Appt Details Provider Name:Chirag Vogel, 11/26/2024 02:30:00 PM, [address] [place] [address] [place], [address], Progress Notes * Amari PAREDESDOB: [birth year] (74 yo M)Acc No.[id number]:08/21/2024 Patient:?DELIAAmari :1950???Age:74 Y???Sex:Male Address:[address] [place] [address] * true * Date:? Generated for Printi ng/Faxing/eTransmitting on:?11/19/2024 11:55 AM EDT
--- OUTSIDE RECORDS SUMMARY | 2024-11-19 11:56 | XMS_ITS ---
Author Organization Chirag Vogel III, MD Address [address] [place] [address] [place] [address] Care Team Providers Care House Shorer Name Role Phone Chirag Vogel Primary Care Provider REASON FOR VISIT annual exam Social History Sex Assigned At : Social History Observation Description Sex Assigned At Male Encounters Encounter Location Date Provider Diagnosis Chirag Vogel III, MD [address] [place] [address] [facility] [place] [address] 10/11/2024 Chirag Vogel Plan Of Treatment Next Appt Details Provider Name:Chirag Vogel, 11/26/2024 02:30:00 PM, [address] [place] [address] [place], [address], Progress Notes * DELIA AmariDOB: [birth year] (74 yo M)Acc No.[id number]:10/11/2024 Progress Notes Patient:?NUVIAPATRICKAmari Provider:?Chirag Vogel MD :1950???Age:74 Y???Sex:Male Albert e:10/11/2024 Address:[address] [place], [place] [phone] Subjective: * Chief Complaints: * ???1. Annual exam. * Medical History:? Objective: * Vitals:? Assessment: Plan: * Treatment: * Images: * The named appointment provid er may or may not be the originator of this progress note, and it is not deemed complete until electronically signed by the appointment provider. Sign off status: Pending * Provider:?Chirag Vogel MD Date:?09/13 Generated for Georgiana miles/Ankur/Evie on:?11/19/2024 11:56 AM EDT
--- OUTSIDE RECORDS SUMMARY | 2024-11-19 11:56 | XMS_ITS ---
Author Organization Chirag Vogel III, MD Address [address] [place] [address] [place] [address] Care Team Providers Care Cco & President Name Role Phone Chirag Vogel Primary Care Provider REASON FOR VISIT follow up Social History Sex Assigned At : Social History Observation Description Sex Assigned At Male Encounters Encounter Location Date Provider Diagnosis Chirag Vogel III, MD [address] [place] [address] [facility] [place] [address] 07/08/2024 Chirag Vogel Plan Of Treatment Next Appt Details Provider Name:Chirag Vogel, 11/26/2024 02:30:00 PM, [address] [place] [address] [place], [address], Progress Notes * Amari PAREDESDOB: [birth year] (74 yo M)Acc No.[id number]:07/08/2024 Progress Notes Patient:?NUVIAPATRICKAmari Provider:?Chirag Vogel MD :1950???Age:74 Y???Sex:Male Albert e:07/08/2024 Address:[address] [place], [place] [phone] Subjective: * Chief Complaints: * ???1. Follow up. * Medical History:? Objective: * Vitals:? Assessment: Plan: * Treatment: * Images: * The named appointment provid er may or may not be the originator of this progress note, and it is not deemed complete until electronically signed by the appointment provider. Sign off status: Pending * Provider:?Chirag Vogel MD Date:?06/12 Generated for Georgiana miles/Ankur/Evie on:?11/19/2024 11:56 AM EDT
[2024-11-19 12:11] LABS: Prostate Specific Antigen 0.27 ng/mL (<0.05-4.0)
[2024-11-19 12:49] LABS: Alanine Aminotransferase 20 U/L (0-40); Albumin Level 4.3 g/dL (3.5-5.0); Alkaline Phosphatase 66 U/L (39-117); Anion Gap 11 (12-20); Aspartate Amino Transferase 20 U/L (5-37); Bilirubin Total 0.7 mg/dL (0.0-1.0); Blood Urea Nitrogen 15 mg/dL (9-16); Calcium 9.2 mg/dL (8.4-10.2); Carbon Dioxide 29 mmol/L (22-29); Chloride 107 mmol/L (96-108); Cholesterol 198 mg/dL (<200); Estimated Glomerular Filt Rate > 60; Glucose Fasting 123 mg/dL (60-99); HDL Cholesterol 45 mg/dL (>40); LDL Cholesterol Calculated 136 mg/dL (<100); Potassium 4.3 mmol/L (3.3-5.1); Sodium 143 mmol/L (135-145); Total Protein 7.7 g/dL (6.5-8.0); Triglycerides 89 mg/dL (<150)
== END 2024-11-19 10:09 | disposition home or self-care (01) ==
LOC: HO.LAB 10:08
PROVIDERS: PCP Internal Medicine Medical Oncology; Visit Provider Internal Medicine Medical Oncology
DX: I10 Essential (primary) hypertension (principal); E87.5 Hyperkalemia; Z12.5 Encounter for screening for malignant neoplasm of prostate; E11.9 Type 2 diabetes mellitus without complications; N40.0 Benign prostatic hyperplasia without lower urinary tract symptoms
CPT/HCPCS: 36415; 80053; 80061; 84153; 85025

== ENCOUNTER 2025-03-22 09:23 | Outpatient (REF) | payer MEDICARE, SELFPAY ==
[2025-03-22 09:35] LABS: MANUAL DIFF FLAG NO
[2025-03-22 09:40] LABS: Hematocrit 44.0 % (42.0-52.0); Hemoglobin 15.4 g/dl (14.0-18.0); Imm Gran Abs Auto 0.02 X10*3/uL (0.00-0.03); Imm Gran Pct Auto 0.2 % (0.0-0.4); Lymphocytes Absolute Auto 1.8 X10*3/uL (1.2-4.9); Mean Corpuscular HGB Conc 35.0 g/dl (31.0-36.0); Mean Corpuscular Hemoglobin 30.5 pg (27.0-33.0); Mean Corpuscular Volume 87.1 fL (80.0-98.0); NRBC Abs Auto 0.000 X10*3/uL (0.0-0.012); NRBC Pct Auto 0.0 /100WBC (0.0-0.2); Platelet Count 185 X10*3/uL (160-400); Red Blood Count 5.05 X10*6/uL (4.60-5.80); White Blood Count 8.5 X10*3/uL (4.8-10.8)
[2025-03-22 09:50] LABS: Hemoglobin A1C 170.1754 umol/L; Total Hemoglobin (HGBA1C) 3991.5537 umol/L
[2025-03-22 10:16] LABS: Alanine Aminotransferase 15 U/L (0-40); Albumin Level 4.4 g/dL (3.5-5.0); Alkaline Phosphatase 67 U/L (39-117); Anion Gap 12 (12-20); Aspartate Amino Transferase 18 U/L (5-37); Blood Urea Nitrogen 17 mg/dL (9-16); Calcium 9.2 mg/dL (8.4-10.2); Carbon Dioxide 27 mmol/L (22-29); Chloride 105 mmol/L (96-108); Cholesterol 202 mg/dL (<200); Estimated Glomerular Filt Rate > 60; HDL Cholesterol 45 mg/dL (>40); Potassium 4.4 mmol/L (3.3-5.1); Sodium 140 mmol/L (135-145); Total Protein 7.3 g/dL (6.5-8.0); Triglycerides 84 mg/dL (<150)
[2025-03-22 10:17] LABS: Microalbum/Creatinine Ratio Ur 6.0 ug/mg cr (<30)
[2025-03-22 10:38] LABS: Prostate Specific Antigen 0.27 ng/mL (<0.05-4.0)
== END 2025-03-22 09:24 | disposition home or self-care (01) ==
LOC: HO.LAB 09:23
PROVIDERS: PCP Internal Medicine Medical Oncology; Visit Provider Internal Medicine Medical Oncology
DX: Z00.00 Encounter for general adult medical examination without abnormal findings (principal); I10 Essential (primary) hypertension; E78.49 Other hyperlipidemia; N52.9 Male erectile dysfunction, unspecified; E11.9 Type 2 diabetes mellitus without complications; E66.09 Other obesity due to excess calories
CPT/HCPCS: 36415; 80053; 80061; 82043; 82570; 83036; 84153; 85025

== ENCOUNTER 2025-06-24 10:03 | Outpatient (REF) | payer MEDICARE, SELFPAY ==
--- OUTSIDE RECORDS SUMMARY | 2024-08-21 06:52 | XMS_ITS ---
Author Organization Chirag Vogel III, MD Address [address] [place] [address] [place] [address] Care Team Providers Care Measurement Superintendent Name Role Phone Dr. Chirag Vogel III Primary Care Provider REASON FOR VISIT Needs call back from Social History Sex Assigned At : Social History Observation Description Sex Assigned At Male Encounters Encounter Location Date Provider Diagnosis Chirag Vogel III, MD [address] [place] [address] [place] [address] 08/21/2024 Chirag Vogel Plan Of Treatment Next Appt Details Provider Name:Chirag Vogel , 07/01/2025 09:30:00 AM, [address] [place] [address] [place], [address], Provider Name:Chirag Vogel , 12/01/2025 09:30:00 AM, [address] [place] [address] [place], [address], Progress Notes * Amari PAREDESDOB: [birth year] (74 yo M)Acc No.[id number]:08/21/2024 Patient: Amari REYES :1950 A ge:74 Y S ex:Male Address: [place] [address] * true * Date: Generated for Georgiana miles/Ankur/Evie on: 11:34 AM EDT
--- OUTSIDE RECORDS SUMMARY | 2024-10-11 13:00 | XMS_ITS ---
Author Organization Chirag Vogel III, MD Address [address] [place] [address] [place] [address] Care Team Providers Care Construction Estimator Name Role Phone Dr. Chirag Vogel III Primary Care Provider REASON FOR VISIT annual exam Social History Sex Assigned At : Social History Observation Description Sex Assigned At Male Encounters Encounter Location Date Provider Diagnosis Chirag Vogel III, MD [address] [place] [address] [place] [address] 10/11/2024 Chirag Vogel Plan Of Treatment Next Appt Details Provider Name:Chirag Vogel , 07/01/2025 09:30:00 AM, [address] [place] [address] [place], [address], Provider Name:Chirag Vogel , 12/01/2025 09:30:00 AM, [address] [place] [address] [place], [address], Progress Notes * LENAAmariDOB: [birth year] (75 yo M)Acc No.[id number]:10/11/2024 Progress Notes Patient: Amari REYES Provider: Dot Vogel MD :1950 A ge:74 Y S ex:Male Date:10/11/2024 Address:[address] [place], [place] [phone] Subjective: * Chief Complaints: * 1 . Annual exam. * Medical History: Objective: * Vitals: Assessment: Plan: * Treatment: * Images: * The named appointment provid er may or may not be the originator of this progress note, and it is not deemed complete until electronically signed by the appointment provider. Sign off status: Pending * Provider: Dot Vogel MD Date: 0 10/11/2024 Generated for Georgiana miles/Ankur/Serasmitting on: 11:35 AM EDT
--- OUTSIDE RECORDS SUMMARY | 2024-11-26 10:30 | XMS_ITS ---
Author Organization Chirag Vogel III, MD Address [address] [place] [address] DR VALENTINO Nick [facility] [place] [address] Care Team Providers Care Manager [employer] Name Role Phone Dr. Chirag Vogel III Primary Care Provider Allergies Allergen (clinical drug ingredient) Drug/Non Drug Allergy documented on EMR Reaction Allergy Type Onset Date Status No Known Drug Allergy Unknown Drug Allergy Active Results Component Value Reference Range Notes URINE DIP STICK Reviewed date:11/26/2024 02:15:21 PM Interpretation: Performing Lab: Notes/Report: SG 1.015 1.005 - 1.025 pH 5.0 5.0 - 9.0 MAURA Negative Negative - NIT Negative Negative - PRO 15 Negative - Trace GLU Negative Negative - KET Negative Negative - UBG 0.2 0.1 - 1.8 KENNEDY Negative 0.2 - 1.3 BLD Negative Negative - REASON FOR VISIT annual exam Medications Medication SIG (Take, Route, Frequency, Duration) Notes Start Date End Date Status Aspirin 81 81 MG 1 tablet Orally Once a day Active Lisinopril 40 MG TAKE 1 TABLET BY ASAEL TH EVERYDAY 90 Active Timolol Maleate 0.5 % PLACE ONE DROP IN AFFECTED EYE TWICE A DAY Ophthalmic Active Atenolol 100 MG TAKE 1 TABLET BY ASAEL TH EVERYDAY Active Clopidogrel Bisulfate 75 MG 1 tablet Ora lly Once a day Active Social History Tobacco Use: Social History Observation Description Date Details (start date - stop date) Current Smoker NA - NA Sex Assigned At : Social History Observation Description Sex Assigned At Male Tobacco Use/Smoking Question Answer Notes Patient is a current smoker How often do you smoke cigarettes? every day How many cigarettes a day do you smoke? 31 or mo re How soon after you wake up d o you smoke your first cigarette? 31-60 minutes Are you interested in quitting? Not ready to darvin t Additional Findings: Tobacco User Heavy cigarett e smoker (20-39 cigs/day) Vital Signs Temperature 98.4 degrees Fahrenheit 11/27/19 25 Blood pressure systolic 136 mm Hg 11/27/19 25 Blood pressure diastolic 80 mm Hg 025 Heart Rate 51 /min 11/26/2024 Height 69 in 11/26/2024 Weight 209 lbs 11/26/2024 BMI 30.86 kg/m2 11/26/2024 Encounters Encounter Location Date Provider Diagnosis Chirag Vogel III, MD [address] [place] [address] [place] [address] 11/26/2024 Chirag Vogel Essential hypertensi on I10 ; Other and unspecified hyperlipidemia E78.5 ; Erectile dysfunction N52.9 ; Type 2 diabetes mellitus without complications E11.9 ; Other obesity due to excess calories E66.09 ; Lumbar radiculopathy M54.16 and Tobacco dependence F17.200 Assessments Encounter Date Diagnosis (ICD Code) Assessment Notes Treat ment Notes Treatment Clinical Notes 11/26/2024 Essential hypertension (ICD-10 - I10) His blood pressure is at the upper limits of normal. I have recommended aggressive weight loss and lifestyle modification and sodium restriction. He did not wish to take her medication today. He will be seen back in the near future to check your blood pressure again encourage weight loss. 11/26/2024 Other and unspecifie d hyperlipidemia (ICD-10 - E78.5) His lipids are well controlled. His total cholesterol was 198. No change in his regimen was made. I have recommended adherence to a healthy diet and aggressive weight loss and smoking cessation. 11/26/2024 Erectile dysfunction (ICD-10 - N52.9) He has been prescribed medication for this problem. He will be referred to a urologist. If it becomes ineffective. 11/26/2024 Type 2 diabetes mellitus without complications (ICD-10 - E11.9) His fasting glucose is 123. I have recommended aggressive weight loss and adherence to a low cholesterol diabetic diet. I recommended regular exercise. 11/26/2024 Other obesity due to excess calories (ICD-10 - E66.09) He has lost 4 pounds. His body mass index is 30. We reviewed his weight loss strategy and diet and nutrition in detail. 11/26/2024 Lumbar radiculopathy (ICD-10 - M54.16) His low back pain has returned and he saw the neurosurgeon. She sent him for physical therapy. He will be monitored carefully. 11/26/2024 Tobacco dependence (ICD-10 - F17.200) He continues to smoke cigarettes. I have made him aware of all the health risks involves. He says he will attempt to stop smoking her to cut down the number of cigarettes he uses per day. Plan Of Treatment Medication Medication Name Sig Start Date Stop Date Notes Aspirin 81 81 MG 1 tablet Orally Once a day Lisinopril 40 MG TAKE 1 TABLET BY ASAEL TH EVERYDAY 90 Timolol Maleate 0.5 % PLACE ONE DROP IN AFFECTED EYE TWICE A DAY Ophthalmic Atenolol 100 MG TAKE 1 TABLET BY ASAEL TH EVERYDAY Clopidogrel Bisulfate 75 MG 1 tablet Orally Once a day Pending Test Test Name Order Date PROFILE, FASTING (COMPREHENSIVE METABOLI C) 11/26/2024 PSA, TOTAL 11/26/2024 CBC w DIFF 11/26/2024 Lipid Panel 11/26/2024 Microalbumin, Random 11/26/2024 Hemoglobin A1c 11/26/2024 Next Appt Details Follow Up: 4 Months, Reason: OV Provider Name:Chirag Vogel , 07/01/2025 09:30:00 AM, [address] [place] [address] [address], [place], [id number], Provider Name:Chirag Vogel , 12/01/2025 09:30:00 AM, [address] [place] [address] [address], [phone], Progress Notes * Amari PAREDESDOB: [birth year] (74 yo M)Acc No.[id number]:11/26/2024 Progress Notes Patient: Amari REYES Provider: Dot Vogel MD :1950 A ge:74 Y S ex:Male Date:11/26/2024 Address:[address] [place] [address], [id number] Subjective: * Chief Complaints: * A nnual exam * HPI: D epression Screening: He returns to the office at the age of 74 for his annual physical examination. He continues to smoke a package of cigarettes per day and has a dry cough. His weight has been stable. He denies any chest pain, dyspnea with exertion hemoptysis, nausea, vomiting, diarrhea, or joint pain. Comprehensive blood work is available and was reviewed with him in detail. His examination today showed no new findings. PHQ-9 L ittle interest or pleasure in doing things?Not at all F eeling down, depressed, or hopeless N ot at all T rouble falling or staying asleep, or sleeping too much N ot at all F eeling tired or having little energy N ot at all P oor appetite or overeating N ot at all F eeling bad about yourself or that you are a failure, or have let yourself or your family down N ot at all T rouble concentrating on things, such as reading the newspaper or watching television N ot at all M oving or speaking so slowly that other people could have noticed; or the opposite, being so fidgety or restless that you have been moving around a lot more than usual N ot at all T houghts that you would be better off or of hurting yourself in some way N ot at all T otal Score 0 C OVID-19 Screening: Questions H ave you had any new onset fever, chills, cough, congestion, sore throat, shortness of breath, muscle aches? N o S ALEXIS Questions: SDOH Questions I n the past year have you been worried about losing your housing? N o I n the past year have you or any family members you live with been unable to get any of the following when it was really needed? Check all that apply: Henrietta adam to answer F all Risk Screening: Fall History H ave you had any falls with injury in the past year? N o H ave you had two or more falls in the past year? N o F all Risk Assessment: * ROS: G eneral/Constitutional: pain C hronic low back pain, otherwise only normal aches and pains. C hills d enies. F atigue a dmits. F ever d enies. E NT: Decreased hearing m ild. R espiratory: Cough n on-productive. C ardiovascular: Chest pain with exertion d enies. D yspnea on exertion?denies. S hortness of breath d enies. G astrointestinal: Constipation o ccasional. D ecreased appetite d enies. D iarrhea d enies. H eartburn o ccasional. N ausea d enies. R ectal bleeding d enies. V omiting d enies. H ematology: bruising d enies. p etechiae d enies. S wollen glands n one have been noted. G enitourinary: Frequent urination o nce a night. M usculoskeletal: Muscle aches d enies. P ainful joints d enies. S ciatica d enies. W eakness d enies. S kin: Itching d enies. R nella d enies. S kin lesion(s)?denies. N eurologic: Difficulty speaking d enies. D izziness d enies.?Headache d enies. L ow back pain t hat is chronic. P sychiatric: Depressed mood d enies. * Medical History: * Surgical History: h erniated disc 12/2018Pressure release procedure, Bilateral eyes 02/2023Left eye Injection 03/2023 * Hospitalization/Major Diagno stic Procedure: D enies Past Hospitalization * Family History: F ather: 66 yrs, Cirrhosis of the liver, myocardial infarction, hypertension, diagnosed with HTN. M other: 56 yrs, lung cancer, diagnosed with Cancer. 1 brother(s) , 1 sister(s) . 1 son(s) - healthy. . A sister has multiple sclerosis. * Social History: T obacco Use: T obacco Use/Smoking P atient is a c urrent smoker H ow often do you smoke cigarettes? e very day H ow many cigarettes a day do you smoke? 3 1 or more H ow soon after you wake up do you smoke your first cigarette? 3 1-60 minutes A re you interested in quitting? N ot ready to quit A dditional Findings: Tobacco User H eavy cigarette smoker (20-39 cigs/day) Sadi sapp has been to [place] for 17 years and working. He enjoys traveling. He was born in [place]. 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 * Medications: T akingClopidogrel Bisulfate 75 MG Tablet 1 tablet Orally Once a day Timolol Maleate 0.5 % Solution PLACE ONE DROP IN AFFECTED EYE TWICE A DAY Ophthalmic Atenolol 100 MG Tablet TAKE 1 TABLET BY MOUTH EVERYDAY Lisinopril 40 MG Tablet TAKE 1 TABLET BY MOUTH EVERYDAY 90 Aspirin 81 81 MG Tablet Delayed Release 1 tablet Orally Once a day Taking Clopidogrel Bisulfate 75 MG Tablet 1 tablet Orally Once a day Taking Timolol Maleate 0.5 % Solution PLACE ONE DROP IN AFFECTED EYE TWICE A DAY Ophthalmic Taking Atenolol 100 MG Tablet TAKE 1 TABLET BY MOUTH EVERYDAY Taking Lisinopril 40 MG Tablet TAKE 1 TABLET BY MOUTH EVERYDAY 90 Taking Aspirin 81 81 MG Tablet Delayed Release 1 tablet Orally Once a day DiscontinuedAzithromycin 250 MG Tablet as directed Orally 2 Tablets on the first day, one tablet the rest of the days Medication List reviewed and reconciled with the patientDiscontinued Azithromycin 250 MG Tablet as directed Orally 2 Tablets on the first day, one tablet the rest of the days Medication List reviewed and reconciled with the patient * Allergies: N o Known Drug Allergyno[Allergies Verified] Objective: * Vitals: H t: 69, Wt:209, BMI:30.86, BP:136/80, HR:51, Temp:98.4, Ht-cm: 175.26, Wt-k.8. * P ast Orders: Lab:URINE DIP STICK * Collection Date 11/26/2024 10/09/2023 10/03/2022 Collection Time 02:14 PM Order Date 11/26/2024 10/09/2023 10/03/2022 SG 1.015 (Ref Range: 1.005 - 1.025) 1.010 (Ref Range: 1.005 - 1.025) 1.025 pH 5.0 (Ref Range: 5.0 - 9.0) 5.0 (Ref Range: 5.0 - 9.0) 5.0 MAURA Negative (Ref Range: Negative -) Negative (Ref Range: Negative -) Neg NIT Negative (Ref Range: Negative -) Negative (Ref Range: Negative -) Neg PRO 15 (Ref Range: Negative - Trace) 15 (Ref Range: Negative - Trace) 15 GLU Negative (Ref Range: Negative -) Negative (Ref Range: Negative -) Neg KET Negative (Ref Range: Negative -) Negative (Ref Range: Negative -) Neg UBG 0.2 (Ref Range: 0.1 - 1.8) 0.2 (Ref Range: 0.1 - 1.8) 0.2 KENNEDY Negative (Ref Range: 0.2 - 1.3) Negative (Ref Range: 0.2 - 1.3) Neg BLD Negative (Ref Range: Negative -) Negative (Ref Range: Negative -) Positive Menstrating NR N/A N/A * Lab:Complete Blood Count Aut o Diff * Collection Date 11/19/2024 04/18/2024 03/07/2024 Collection Time 10:30 AM 09:03 AM 09:24 AM Order Date 11/19/2024 04/18/2024 03/07/2024 White Blood Count 8.5 (Ref Range: 4.8-10.8 X10*3/uL) 11.7 H (Ref Range: 4.8-10.8 X10*3/uL) 7.7 (Ref Range: 4.8-10.8 X10*3/uL) Red Blood Count 5.21 (Ref Range: 4.60-5.80 X10*6/uL) 4.96 (Ref Range: 4.60-5.80 X10*6/uL) 5.03 (Ref Range: 4.60-5.80 X10*6/uL) Hemoglobin 15.9 (Ref Range: 14.0-18.0 g/dl) 15.8 (Ref Range: 14.0-18.0 g/dl) 16.0 (Ref Range: 14.0-18.0 g/dl) Hematocrit 46.8 (Ref Range: 42.0-52.0 %) 46.4 (Ref Range: 42.0-52.0 %) 47.0 (Ref Range: 42.0-52.0 %) Mean Corpuscular Volume 89.8 (Ref Range: 80.0-98.0 fL) 93.5 (Ref Range: 80.0-98.0 fL) 93.4 (Ref Range: 80.0-98.0 fL) Mean Corpuscular Hemoglobin 30.5 (Ref Range: 27.0-33.0 pg) 31.9 (Ref Range: 27.0-33.0 pg) 31.8 (Ref Range: 27.0-33.0 pg) Mean Corpuscular HGB Conc 34.0 (Ref Range: 31.0-36.0 g/dl) 34.1 (Ref Range: 31.0-36.0 g/dl) 34.0 (Ref Range: 31.0-36.0 g/dl) Red Cell Distribution Width 13.8 (Ref Range: 11.0-16.0 %) 13.6 (Ref Range: 11.0-16.0 %) 14.5 (Ref Range: 11.0-16.0 %) Platelet Count 201 (Ref Range: 160-400 X10*3/uL) 172 (Ref Range: 160-400 X10*3/uL) 172 (Ref Range: 160-400 X10*3/uL) Mean Platelet Volume 9.8 (Ref Range: 9.4-12.4 fL) 10.4 (Ref Range: 9.4-12.4 fL) 9.9 (Ref Range: 9.4-12.4 fL) Neutrophils Percent Auto 64.6 (Ref Range: 45-73 %) 76.5 H (Ref Range: 45-73 %) 67.7 (Ref Range: 45-73 %) Imm Gran Pct Auto 0.4 (Ref Range: 0.0-0.4 %) 0.3 (Ref Range: 0.0-0.4 %) 0.4 (Ref Range: 0.0-0.4 %) Lymphocytes Percent Auto 25.0 (Ref Range: 20-40 %) 12.9 L (Ref Range: 20-40 %) 23.8 (Ref Range: 20-40 %) Monocytes Percent Auto 6.8 (Ref Range: 2-11 %) 8.3 (Ref Range: 2-11 %) 5.9 (Ref Range: 2-11 %) Eosinophils Percent Auto 2.0 (Ref Range: 0-4 %) 1.2 (Ref Range: 0-4 %) 1.4 (Ref Range: 0-4 %) Basophils Percent Auto 1.2 (Ref Range: 0-2 %) 0.8 (Ref Range: 0-2 %) 0.8 (Ref Range: 0-2 %) NRBC Pct Auto 0.0 (Ref Range: 0.0-0.2 /100WBC) 0.0 (Ref Range: 0.0-0.2 /100WBC) 0.0 (Ref Range: 0.0-0.2 /100WBC) Neutrophils Absolute Auto 5.5 (Ref Range: 2.0-8.3 x10*3/uL) 9.0 H (Ref Range: 2.0-8.3 x10*3/uL) 5.2 (Ref Range: 2.0-8.3 x10*3/uL) Imm Gran Abs Auto 0.03 (Ref Range: 0.00-0.03 X10*3/uL) 0.04 H (Ref Range: 0.00-0.03 X10*3/uL) 0.03 (Ref Range: 0.00-0.03 X10*3/uL) Lymphocytes Absolute Auto 2.1 (Ref Range: 1.2-4.9 X10*3/uL) 1.5 (Ref Range: 1.2-4.9 X10*3/uL) 1.8 (Ref Range: 1.2-4.9 X10*3/uL) Monocytes Absolute Auto 0.6 (Ref Range: 0.1-1.2 X10*3/uL) 1.0 (Ref Range: 0.1-1.2 X10*3/uL) 0.5 (Ref Range: 0.1-1.2 X10*3/uL) Eosinophils Absolute Auto 0.2 (Ref Range: 0.0-0.4 X10*3/uL) 0.1 (Ref Range: 0.0-0.4 X10*3/uL) 0.1 (Ref Range: 0.0-0.4 X10*3/uL) Basophils Absolute Auto 0.1 (Ref Range: 0.0-0.2 X10*3/uL) 0.1 (Ref Range: 0.0-0.2 X10*3/uL) 0.1 (Ref Range: 0.0-0.2 X10*3/uL) NRBC Abs Auto 0.000 (Ref Range: 0.0-0.012 X10*3/uL) 0.000 (Ref Range: 0.0-0.012 X10*3/uL) 0.000 (Ref Range: 0.0-0.012 X10*3/uL) * Lab:[facility]ings Fast * Collection Date 11/19/2024 04/18/2024 03/07/2024 Collection Time 10:30 AM 09:03 AM 09:24 AM Order Date 11/19/2024 04/18/2024 03/07/2024 Sodium 143 (Ref Range: 135-145 mmol/L) 143 (Ref Range: 135-145 mmol/L) 143 (Ref Range: 135-145 mmol/L) Bilirubin Total 0.7 (Ref Range: 0.0-1.0 mg/dL) 0.8 (Ref Range: 0.0-1.0 mg/dL) 0.6 (Ref Range: 0.0-1.0 mg/dL) Aspartate Amino Transferase 20 (Ref Range: 5-37 U/L) 10 (Ref Range: 5-37 U/L) 15 (Ref Range: 5-37 U/L) Alanine Aminotransferase 20 (Ref Range: 0-40 U/L) 10 (Ref Range: 0-40 U/L) 16 (Ref Range: 0-40 U/L) Total Protein 7.7 (Ref Range: 6.5-8.0 g/dL) 7.3 (Ref Range: 6.5-8.0 g/dL) 7.3 (Ref Range: 6.5-8.0 g/dL) Albumin Level 4.3 (Ref Range: 3.5-5.0 g/dL) 4.2 (Ref Range: 3.5-5.0 g/dL) 4.3 (Ref Range: 3.5-5.0 g/dL) Alkaline Phosphatase 66 (Ref Range: 39-117 U/L) 71 (Ref Range: 39-117 U/L) 66 (Ref Range: 39-117 U/L) Potassium 4.3 (Ref Range: 3.3-5.1 mmol/L) 4.8 (Ref Range: 3.3-5.1 mmol/L) 4.7 (Ref Range: 3.3-5.1 mmol/L) Chloride 107 (Ref Range: 96-108 mmol/L) 107 (Ref Range: 96-108 mmol/L) 108 (Ref Range: 96-108 mmol/L) Carbon Dioxide 29 (Ref Range: 22-29 mmol/L) 30 H (Ref Range: 22-29 mmol/L) 28 (Ref Range: 22-29 mmol/L) Anion Gap 11 L (Ref Range: 12-20) 11 L (Ref Range: 12-20) 12 (Ref Range: 12-20) Blood Urea Nitrogen 15 (Ref Range: 9-16 mg/dL) 12 (Ref Range: 9-16 mg/dL) 15 (Ref Range: 9-16 mg/dL) Creatinine 1.04 (Ref Range: 0.5-1.4 mg/dL) 0.96 (Ref Range: 0.5-1.4 mg/dL) 0.98 (Ref Range: 0.5-1.4 mg/dL) Estimated Glomerular Filt Rate > 60 > 60 > 60 Glucose Fasting 123 H (Ref Range: 60-99 mg/dL) 129 H (Ref Range: 60-99 mg/dL) 116 H (Ref Range: 60-99 mg/dL) Calcium 9.2 (Ref Range: 8.4-10.2 mg/dL) 9.7 (Ref Range: 8.4-10.2 mg/dL) 9.3 (Ref Range: 8.4-10.2 mg/dL) * Lab:Lipid Panel * Collection Date 11/19/2024 04/18/2024 03/07/2024 Collection Time 10:30 AM 09:03 AM 09:24 AM Order Date 11/19/2024 04/16/2024 03/07/2024 Triglycerides 89 (Ref Range: <150 mg/dL) 65 (Ref Range: <150 mg/dL) 60 (Ref Range: <150 mg/dL) Cholesterol 198 (Ref Range: <200 mg/dL) 167 (Ref Range: <200 mg/dL) 193 (Ref Range: <200 mg/dL) LDL Cholesterol Calculated 136 H (Ref Range: <100 mg/dL) 112 H (Ref Range: <100 mg/dL) 124 H (Ref Range: <100 mg/dL) HDL Cholesterol 45 (Ref Range: >40 mg/dL) 42 (Ref Range: >40 mg/dL) 57 (Ref Range: >40 mg/dL) * Lab:Prostate Specific Antige n * Collection Date 11/19/2024 04/18/2024 03/07/2024 Collection Time 10:30 AM 09:03 AM 09:24 AM Order Date 11/19/2024 04/18/2024 03/07/2024 Prostate Specific Antigen 0.27 (Ref Range: <0.05-4.0 ng/mL) 0.27 (Ref Range: <0.05-4.0 ng/mL) 0.37 (Ref Range: <0.05-4.0 ng/mL) * Examination: G eneral Examination: GENERAL APPEARANCE: p leasant, well nourished, well developed, in no acute distress, calm and relaxed, obese, man. HEAD: a traumatic, normocephalic. EYES: e vanesa, perrla, anicteric, conjugate. EARS: n ormal. NOSE: s eptum intact. ORAL CAVITY: n ormal, unremarkable. NECK/THYROID: n o jugular venous distention, no carotid bruit, thyroid normal. LYMPH NODES: n o enlarged lymph nodes,spleen normal. SKIN: n o suspicious lesions, anicteric. HEART: n o clicks, gallops, murmurs, or rubs, regular rhythm, S1, S2 normal, no s3, or vascular bruits. LUNGS: c lear to auscultation . BREASTS: no masses palpable bilaterally. ABDOMEN: b owel sounds normal, no ascites, no organomegaly, no mass. RECTAL EXAM: , normal tone, no masses palpable, prostate normal, stool guaiac negative. MUSCULOSKELETAL: e xtremities unremarkable, no clubbing, cyanosis or edema. PERIPHERAL PULSES: n ormal. NEUROLOGIC: a lert and oriented, cranial nerves 2-12 grossly intact, deep tendon reflexes 2+ symmetrical, motor strength normal upper and lower extremities, sensory exam intact. PSYCH: a lert, oriented, speech clear, good eye contact, cooperative with exam, cognitive function intact, thought process logical, goal directed. ? Assessment: * Assessment: 1. E ssential hypertension - I10 (Primary) N otes :His blood pressure is at the upper limits of normal. I have recommended aggressive weight loss and lifestyle modification and sodium restriction. He did not wish to take her medication today. He will be seen back in the near future to check your blood pressure again encourage weight loss. 2 . O ther and unspecified hyperlipidemia - E78.5 N otes :His lipids are well controlled. His total cholesterol was 198. No change in his regimen was made. I have recommended adherence to a healthy diet and aggressive weight loss and smoking cessation. 3 . E rectile dysfunction - N52.9 N otes :He has been prescribed medication for this problem. He will be referred to a urologist. If it becomes ineffective. 4 . T ype 2 diabetes mellitus without complications - E11.9 N otes :His fasting glucose is 123. I have recommended aggressive weight loss and adherence to a low cholesterol diabetic diet. I recommended regular exercise. 5 . O ther obesity due to excess calories - E66.09 N otes :He has lost 4 pounds. His body mass index is 30. We reviewed his weight loss strategy and diet and nutrition in detail. 6 . L umbar radiculopathy - M54.16 N otes :His low back pain has returned and he saw the neurosurgeon. She sent him for physical therapy. He will be monitored carefully. 7 . T obacco dependence - F17.200 N otes :He continues to smoke cigarettes. I have made him aware of all the health risks involves. He says he will attempt to stop smoking her to cut down the number of cigarettes he uses per day. Plan: * Treatment: 2. O ther and unspecified hyperlipidemia L AB: PROFILE, FASTING (COMPREHENSIVE METABOLIC) L AB: PSA, TOTAL L AB: CBC w DIFF L AB: Lipid Panel L AB: Microalbumin, Random L AB: Hemoglobin A1c 3. E rectile dysfunction L AB: PROFILE, FASTING (COMPREHENSIVE METABOLIC) L AB: PSA, TOTAL L AB: CBC w DIFF L AB: Lipid Panel L AB: Microalbumin, Random L AB: Hemoglobin A1c 4. T ype 2 diabetes mellitus without complications L AB: PROFILE, FASTING (COMPREHENSIVE METABOLIC) L AB: PSA, TOTAL L AB: CBC w DIFF L AB: Lipid Panel L AB: Microalbumin, Random L AB: Hemoglobin A1c 5. O ther obesity due to excess calories L AB: PROFILE, FASTING (COMPREHENSIVE METABOLIC) L AB: PSA, TOTAL L AB: CBC w DIFF L AB: Lipid Panel L AB: Microalbumin, Random L AB: Hemoglobin A1c * Labs: * L ab: URINE DIP STICK (Collection Date & Time - 11/26/2024) Value Reference Range S G 1.015 1.005 - 1.025 * p H 5.0 5.0 - 9.0 * L EU Negative Negative - * N IT Negative Negative - * P RO 15 Negative - Trace * G MAGALIE Negative Negative - * K ET Negative Negative - * U BG 0.2 0.1 - 1.8 * B IL Negative 0.2 - 1.3 * B LD Negative Negative - * Procedure Codes: 8 1002 URINE-NO MICRO * Preventive Medicine: Counseling: C are goal follow-up plan: Counseling for abnormal BMI given Y es Above Normal BMI Follow-up D ietary management education, guidance, and counseling, Dietary needs education, Exercise promotion: strength training, Exercise promotion: stretching, Feeding regime, Giving encouragement to exercise, Lifestyle education regarding diet, Nutrition / feeding management, Nutrition therapy, Prescribed activity/exercise education, Prescribed diet education, Prescribed dietary intake, Special diet education, Weight monitoring , Intervention, Order not done: Medical or Other reason not done S moking/Tobacco Use Patient counseled on the dangers of tobacco use and urged to quit. 0 11/26/2024 Patient Lifestyle Goals P atient wants to quit Treatment Goals C ut down by 1 cigarette a week, Set a quit date Barriers S ocial smoker, Stress Self-Management Plan M nadja a plan to cut down number of cigarettes over time and set a date to work towards quitting * Follow Up: 4 Months (Reason: OV) * Images: * Sign off status: Completed true * Provider: Dot Vogel MD Date: 0 11/26/2024 Generated for Georgiana miles/Ankur/Serasmitting on: 1 11:35 AM EDT History and Physical Notes * HPI (History of Present Illness) Category Sub-Category Detail Notes Depression Screening PHQ-9 Little inte rest or pleasure in doing things: Not at all Feeling down, depressed, or hopeless: No t at all Trouble falling or staying asleep, or sl eeping too much: Not at all Feeling tired or having little energy: N ot at all Poor appetite or overeating: Not at all Feeling bad about yourself o r that you are a failure, or have let yourself or your family down: Not at all Trouble concentrating on thi ngs, such as reading the newspaper or watching television: Not at all Moving or speaking so slowly that other people could have noticed; or the opposite, being so fidgety or restless that you have been moving around a lot more than usual: Not at all Thoughts that you would be b cherri off or of hurting yourself in some way: Not at all Total Score: 0 Fall Risk Screening Fall History Have you had any falls with injury in the past year?: No Have you had two or more falls in the st year?: No Fall Risk Assessment:: COVID-19 Screening Questions Have you had any new onset fever, chills, cough, congestion, sore throat, shortness of breath, muscle aches?: No SDOH Questions SDOH Questions In the past year have you been worried about losing your housing?: No In the past year have you or any family members you live with been unable to get any of the following when it was really needed? Check all that apply:: Decline to answer Examination Category Sub-Category Detail Notes General Examination GENERAL APPEARANCE: pleasant , well nourished, well developed, in no acute distress, calm and relaxed, obese, man HEAD: atraumatic, normocep halic EYES: eomi, perrla, anicte timi, conjugate EARS: normal NOSE: septum intact NECK/THYROID: no jugular venous di stention, no carotid bruit, thyroid normal HEART: no clicks, gallops, murmurs, or rubs, regular rhythm, S1, S2 normal, no s3, or vascular bruits LUNGS: clear to auscultatio n ABDOMEN: bowel sounds normal, no ascites, no organomegaly, no mass NEUROLOGIC: alert and oriented, cranial nerves 2-12 grossly intact, deep tendon reflexes 2+ symmetrical, motor strength normal upper and lower extremities, sensory exam intact SKIN: no suspicious lesion s, anicteric PERIPHERAL PULSES: normal BREASTS: no masses palpable b ilaterally MUSCULOSKELETAL: extremities unremark able, no clubbing, cyanosis or edema LYMPH NODES: no enlarged lymph no viki,spleen normal RECTAL EXAM: , normal tone, no ma sses palpable, prostate normal, stool guaiac negative PSYCH: alert, oriented, spe ech clear, good eye contact, cooperative with exam, cognitive function intact, thought process logical, goal directed ORAL CAVITY: normal, unremarkable
--- OUTSIDE RECORDS SUMMARY | 2025-03-28 05:15 | XMS_ITS ---
Author Organization Chirag Vogel III, MD Address [address] [place] [address] DR VAL[address] Nick [place] [address] Care Team Providers Care Financial Coach Name Role Phone Dr. Chirag Vogel III Primary Care Provider Allergies Allergen (clinical drug ingredient) Drug/Non Drug Allergy documented on EMR Reaction Allergy Type Onset Date Status No Known Drug Allergy Unknown Drug Allergy Active REASON FOR VISIT Hypertension, Hyperlipidemia, Diabetes, Lumbar radiculopathy, Tobacco deep tendon, Benign prostatichypertrophy, Obesity Medications Medication SIG (Take, Route, Frequency, Duration) Notes Start Date End Date Status Atenolol 100 MG TAKE 1 TABLET BY ASAEL TH EVERYDAY 90 Active Lisinopril 40 MG TAKE 1 TABLET BY ASAEL TH EVERYDAY Active Timolol Maleate 0.5 % PLACE ONE DROP IN AFFECTED EYE TWICE A DAY Ophthalmic Active Clopidogrel Bisulfate 75 MG 1 tablet Ora lly Once a day Active Aspirin 81 81 MG 1 tablet Orally Once a day Active Social History Tobacco [...] e smoker (20-39 cigs/day) Vital Signs Temperature 97.4 degrees Fahrenheit 03/28/20 25 Blood pressure systolic 138 mm Hg 03/28/20 25 Blood pressure diastolic 70 mm Hg 025 Heart Rate 62 /min 03/28/2025 Height 69 in 03/28/2025 Weight 213 lbs 03/28/2025 BMI 31.45 kg/m2 03/28/2025 Encounters Encounter Location Date Provider Diagnosis Chirag Vogel III, MD [address] [place] [address] [place] [address] 03/28/2025 Chirag Vogel Essential hypertensi on I10 ; Type 2 diabetes mellitus without complications E11.9 ; Other and unspecified hyperlipidemia E78.5 ; Obesity (BMI 30.0-34.9) E66.9 ; Lumbar radiculopathy M54.16 ; BPH (benign prostatic hyperplasia) N40.0 and Tobacco dependence F17.200 Assessments Encounter Date Diagnosis (ICD Code) Assessment Notes Treat ment Notes Treatment Clinical Notes 03/28/2025 Essential hypertension (ICD-10 - I10) His blood pressure is stable and no change in his regimen was needed today. 03/28/2025 Type 2 diabetes mellitus without complications (ICD-10 - E11.9) His hemoglobin A1c is less than 7.0. Her medications were continued. I strongly recommended weight loss and smoking cessation. 03/28/2025 Other and unspecifie d hyperlipidemia (ICD-10 - E78.5) His total cholesterol is 202. No change in his regimen was needed. 03/28/2025 Obesity (BMI 30.0-34.9) (ICD-10 - E66.9) He has gained several is in the obese range. We discussed connection between weight and diabetic control. We made a plan to lose weight at a rate of 1 pound per week. 03/28/2025 Lumbar radiculopathy (ICD-10 - M54.16) His low back pain has returned and he saw the neurosurgeon. She sent him for physical therapy. He will be monitored carefully. 03/28/2025 BPH (benign prostati c hyperplasia) (ICD-10 - N40.0) He arises from sleep on the average once a night to urinate. No change in his medications was necessary. 03/28/2025 Tobacco dependence (ICD-10 - F17.200) He continues to smoke cigarettes. I have made him aware of all the health risks involves. He says he will attempt to stop smoking her to cut down the number of cigarettes he uses per day. Plan Of Treatment Medication Medication Name Sig Start Date Stop Date Notes Atenolol 100 MG TAKE 1 TABLET BY ASAEL TH EVERYDAY 90 Lisinopril 40 MG TAKE 1 TABLET BY ASAEL TH EVERYDAY Timolol Maleate 0.5 % PLACE ONE DROP IN AFFECTED EYE TWICE A DAY Ophthalmic Clopidogrel Bisulfate 75 MG 1 tablet Orally Once a day Aspirin 81 81 MG 1 tablet Orally Once a day Pending Test Test Name Order Date PROFILE, FASTING (COMPREHENSIVE METABOLI C) 03/28/2025 CBC w DIFF 03/28/2025 Lipid Panel 03/28/2025 Hemoglobin A1c 03/28/2025 Next Appt Details Follow Up: 3 Months, Reason: OV Provider Name:Chirag Vogel , 07/01/2025 09:30:00 AM, [address] [place] [address] [address], [place], [id number], Provider Name:Chirag Vogel , 12/01/2025 09:30:00 AM, [address] [place] [address] [address], [place], [phone], Progress Notes * Amari PAREDESDOB: [birth year] (75 yo M)Acc No.[id number]:03/28/2025 Progress Notes Patient: Amari REYES Provider: Dot Vogel MD :1950 A ge:75 Y S ex:Male Date:03/28/2025 Address:[address] [place] [id number] Subjective: * Chief Complaints: * H ypertensionHyperlipidemiaDiabetesLumbar radiculopathyTobacco deep tendonBenign prostatic hypertrophyObesity * HPI: C OVID-19 Screening: He returns for medical management. He has continued to smoke a package of cigarettes per day. He says he feels well and does not experience shortness of breath with exertion. He does, however, saying he is smoking less. His CAT scan his Alcohol use substantially. He has no chest pain or shortness of breath. He has not been testing his fasting glucose levels and has declined today to have a glucometer strips and lancets provided to him. Questions H ave you had any new onset fever, chills, cough, congestion, sore throat, shortness of breath, muscle aches? N o * ROS: G eneral/Constitutional: pain L umbar spine. C hills d enies. F atigue?admits. F ever d enies. E NT: Decreased hearing m ild. R espiratory: Cough n on-productive. C ardiovascular: Chest pain with exertion d enies. D yspnea on exertion?denies. S hortness of breath d enies. G astrointestinal: Constipation d enies. D ecreased appetite d enies.?Diarrhea d enies. H eartburn d enies. N ausea d enies. R ectal bleeding?denies. V omiting d enies. H ematology: bruising d enies. p etechiae d enies. S wollen glands n one have been noted. G enitourinary: Frequent urination o nce a night. M usculoskeletal: Muscle aches d enies. P ainful joints L umbar spine. S ciatica d enies. W eakness d [...] T obacco Use: T obacco Use/Smoking P atmoose is a c urrent smoker H ow [...] He enjoys traveling. He was born in [place]. 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 * Medications: T akingClopidogrel Bisulfate 75 MG Tablet 1 tablet Orally Once a day Timolol Maleate 0.5 % Solution PLACE ONE DROP IN AFFECTED EYE TWICE A DAY Ophthalmic Aspirin 81 81 MG Tablet Delayed Release 1 tablet Orally Once a day Atenolol 100 MG Tablet TAKE 1 TABLET BY MOUTH EVERYDAY 90 Lisinopril 40 MG Tablet TAKE 1 TABLET BY MOUTH EVERYDAY Medication List reviewed and reconciled with the patientTaking Clopidogrel Bisulfate 75 MG Tablet 1 tablet Orally Once a day Taking Timolol Maleate 0.5 % Solution PLACE ONE DROP IN AFFECTED EYE TWICE A DAY Ophthalmic Taking Aspirin 81 81 MG Tablet Delayed Release 1 tablet Orally Once a day Taking Atenolol 100 MG Tablet TAKE 1 TABLET BY MOUTH EVERYDAY 90 Taking Lisinopril 40 MG Tablet TAKE 1 TABLET BY MOUTH EVERYDAY Medication List reviewed and reconciled with the patient * Allergies: N o Known Drug Allergyno[Allergies Verified] Objective: * Vitals: H t: 69, Wt:213, BMI:31.45, BP:138/70, HR:62, Temp:97.4, Ht-cm: 175.26, Wt-k.62. * P ast Orders: Lab:Prostate Specific Antige n * Collection Date 03/22/2025 11/19/2024 04/18/2024 Collection Time 09:33 AM 10:30 AM 09:03 AM Order Date 03/22/2025 11/19/2024 04/18/2024 Prostate Specific Antigen 0.27 (Ref Range: <0.05-4.0 ng/mL) 0.27 (Ref Range: <0.05-4.0 ng/mL) 0.27 (Ref Range: <0.05-4.0 ng/mL) * Lab:Lipid Panel * Collection Date 03/22/2025 11/19/2024 04/18/2024 Collection Time 09:33 AM 10:30 AM 09:03 AM Order Date 03/22/2025 11/19/2024 04/16/2024 Triglycerides 84 (Ref Range: <150 mg/dL) 89 (Ref Range: <150 mg/dL) 65 (Ref Range: <150 mg/dL) Cholesterol 202 H (Ref Range: <200 mg/dL) 198 (Ref Range: <200 mg/dL) 167 (Ref Range: <200 mg/dL) LDL Cholesterol Calculated 141 H (Ref Range: <100 mg/dL) 136 H (Ref Range: <100 mg/dL) 112 H (Ref Range: <100 mg/dL) HDL Cholesterol 45 (Ref Range: >40 mg/dL) 45 (Ref Range: >40 mg/dL) 42 (Ref Range: >40 mg/dL) * Lab:Comprehensive [place]. Pane l Fast * Collection Date 03/22/2025 11/19/2024 04/18/2024 Collection Time 09:33 AM 10:30 AM 09:03 AM Order Date 03/22/2025 11/19/2024 04/18/2024 Sodium 140 (Ref Range: 135-145 mmol/L) 143 (Ref Range: 135-145 mmol/L) 143 (Ref Range: 135-145 mmol/L) Bilirubin Total 0.7 (Ref Range: 0.0-1.0 mg/dL) 0.7 (Ref Range: 0.0-1.0 mg/dL) 0.8 (Ref Range: 0.0-1.0 mg/dL) Aspartate Amino Transferase 18 (Ref Range: 5-37 U/L) 20 (Ref Range: 5-37 U/L) 10 (Ref Range: 5-37 U/L) Alanine Aminotransferase 15 (Ref Range: 0-40 U/L) 20 (Ref Range: 0-40 U/L) 10 (Ref Range: 0-40 U/L) Total Protein 7.3 (Ref Range: 6.5-8.0 g/dL) 7.7 (Ref Range: 6.5-8.0 g/dL) 7.3 (Ref Range: 6.5-8.0 g/dL) Albumin Level 4.4 (Ref Range: 3.5-5.0 g/dL) 4.3 (Ref Range: 3.5-5.0 g/dL) 4.2 (Ref Range: 3.5-5.0 g/dL) Alkaline Phosphatase 67 (Ref Range: 39-117 U/L) 66 (Ref Range: 39-117 U/L) 71 (Ref Range: 39-117 U/L) Potassium 4.4 (Ref Range: 3.3-5.1 mmol/L) 4.3 (Ref Range: 3.3-5.1 mmol/L) 4.8 (Ref Range: 3.3-5.1 mmol/L) Chloride 105 (Ref Range: 96-108 mmol/L) 107 (Ref Range: 96-108 mmol/L) 107 (Ref Range: 96-108 mmol/L) Carbon Dioxide 27 (Ref Range: 22-29 mmol/L) 29 (Ref Range: 22-29 mmol/L) 30 H (Ref Range: 22-29 mmol/L) Anion Gap 12 (Ref Range: 12-20) 11 L (Ref Range: 12-20) 11 L (Ref Range: 12-20) Blood Urea Nitrogen 17 H (Ref Range: 9-16 mg/dL) 15 (Ref Range: 9-16 mg/dL) 12 (Ref Range: 9-16 mg/dL) Creatinine 1.07 (Ref Range: 0.5-1.4 mg/dL) 1.04 (Ref Range: 0.5-1.4 mg/dL) 0.96 (Ref Range: 0.5-1.4 mg/dL) Estimated Glomerular Filt Rate > 60 > 60 > 60 Glucose Fasting 140 H (Ref Range: 60-99 mg/dL) 123 H (Ref Range: 60-99 mg/dL) 129 H (Ref Range: 60-99 mg/dL) Calcium 9.2 (Ref Range: 8.4-10.2 mg/dL) 9.2 (Ref Range: 8.4-10.2 mg/dL) 9.7 (Ref Range: 8.4-10.2 mg/dL) * Lab:Complete Blood Count Aut o Diff * Collection Date 03/22/2025 11/19/2024 04/18/2024 Collection Time 09:33 AM 10:30 AM 09:03 AM Order Date 03/22/2025 11/19/2024 04/18/2024 White Blood Count 8.5 (Ref Range: 4.8-10.8 X10*3/uL) 8.5 (Ref Range: 4.8-10.8 X10*3/uL) 11.7 H (Ref Range: 4.8-10.8 X10*3/uL) Red Blood Count 5.05 (Ref Range: 4.60-5.80 X10*6/uL) 5.21 (Ref Range: 4.60-5.80 X10*6/uL) 4.96 (Ref Range: 4.60-5.80 X10*6/uL) Hemoglobin 15.4 (Ref Range: 14.0-18.0 g/dl) 15.9 (Ref Range: 14.0-18.0 g/dl) 15.8 (Ref Range: 14.0-18.0 g/dl) Hematocrit 44.0 (Ref Range: 42.0-52.0 %) 46.8 (Ref Range: 42.0-52.0 %) 46.4 (Ref Range: 42.0-52.0 %) Mean Corpuscular Volume 87.1 (Ref Range: 80.0-98.0 fL) 89.8 (Ref Range: 80.0-98.0 fL) 93.5 (Ref Range: 80.0-98.0 fL) Mean Corpuscular Hemoglobin 30.5 (Ref Range: 27.0-33.0 pg) 30.5 (Ref Range: 27.0-33.0 pg) 31.9 (Ref Range: 27.0-33.0 pg) Mean Corpuscular HGB Conc 35.0 (Ref Range: 31.0-36.0 g/dl) 34.0 (Ref Range: 31.0-36.0 g/dl) 34.1 (Ref Range: 31.0-36.0 g/dl) Red Cell Distribution Width 14.3 (Ref Range: 11.0-16.0 %) 13.8 (Ref Range: 11.0-16.0 %) 13.6 (Ref Range: 11.0-16.0 %) Platelet Count 185 (Ref Range: 160-400 X10*3/uL) 201 (Ref Range: 160-400 X10*3/uL) 172 (Ref Range: 160-400 X10*3/uL) Mean Platelet Volume 9.5 (Ref Range: 9.4-12.4 fL) 9.8 (Ref Range: 9.4-12.4 fL) 10.4 (Ref Range: 9.4-12.4 fL) Neutrophils Percent Auto 69.6 (Ref Range: 45-73 %) 64.6 (Ref Range: 45-73 %) 76.5 H (Ref Range: 45-73 %) Imm Gran Pct Auto 0.2 (Ref Range: 0.0-0.4 %) 0.4 (Ref Range: 0.0-0.4 %) 0.3 (Ref Range: 0.0-0.4 %) Lymphocytes Percent Auto 20.9 (Ref Range: 20-40 %) 25.0 (Ref Range: 20-40 %) 12.9 L (Ref Range: 20-40 %) Monocytes Percent Auto 7.0 (Ref Range: 2-11 %) 6.8 (Ref Range: 2-11 %) 8.3 (Ref Range: 2-11 %) Eosinophils Percent Auto 1.4 (Ref Range: 0-4 %) 2.0 (Ref Range: 0-4 %) 1.2 (Ref Range: 0-4 %) Basophils Percent Auto 0.9 (Ref Range: 0-2 %) 1.2 (Ref Range: 0-2 %) 0.8 (Ref Range: 0-2 %) NRBC Pct Auto 0.0 (Ref Range: 0.0-0.2 /100WBC) 0.0 (Ref Range: 0.0-0.2 /100WBC) 0.0 (Ref Range: 0.0-0.2 /100WBC) Neutrophils Absolute Auto 5.9 (Ref Range: 2.0-8.3 x10*3/uL) 5.5 (Ref Range: 2.0-8.3 x10*3/uL) 9.0 H (Ref Range: 2.0-8.3 x10*3/uL) Imm Gran Abs Auto 0.02 (Ref Range: 0.00-0.03 X10*3/uL) 0.03 (Ref Range: 0.00-0.03 X10*3/uL) 0.04 H (Ref Range: 0.00-0.03 X10*3/uL) Lymphocytes Absolute Auto 1.8 (Ref Range: 1.2-4.9 X10*3/uL) 2.1 (Ref Range: 1.2-4.9 X10*3/uL) 1.5 (Ref Range: 1.2-4.9 X10*3/uL) Monocytes Absolute Auto 0.6 (Ref Range: 0.1-1.2 X10*3/uL) 0.6 (Ref Range: 0.1-1.2 X10*3/uL) 1.0 (Ref Range: 0.1-1.2 X10*3/uL) Eosinophils Absolute Auto 0.1 (Ref Range: 0.0-0.4 X10*3/uL) 0.2 (Ref Range: 0.0-0.4 X10*3/uL) 0.1 (Ref Range: 0.0-0.4 X10*3/uL) Basophils Absolute Auto 0.1 (Ref Range: 0.0-0.2 X10*3/uL) 0.1 (Ref Range: 0.0-0.2 X10*3/uL) 0.1 (Ref Range: 0.0-0.2 X10*3/uL) NRBC Abs Auto 0.000 (Ref Range: 0.0-0.012 X10*3/uL) 0.000 (Ref Range: 0.0-0.012 X10*3/uL) 0.000 (Ref Range: 0.0-0.012 X10*3/uL) * Lab:Hemoglobin A1c * Collection Date 03/22/2025 03/07/2024 03/27/2023 Collection Time 09:33 AM 09:24 AM 08:07 AM Order Date 03/22/2025 03/07/2024 03/27/2023 Hemoglobin A1c % 6.1 H (Ref Range: <6.0 %) 5.8 (Ref Range: <6.0 %) 5.5 (Ref Range: %) Estimated Average Glucose 128 (Ref Range: mg/dL) 120 (Ref Range: mg/dL) 111 (Ref Range: mg/dL) * Lab:Microalbumin, Random * Collection Date 03/22/2025 03/07/2024 12/26/2022 Collection Time 09:29 AM 09:20 AM 09:18 AM Order Date 03/22/2025 03/07/2024 12/26/2022 Creatinine Urine 263.84 (Ref Range: mg/dL) 162.22 (Ref Range: mg/dL) 194.29 (Ref Range: mg/dL) Microalbumin Urine 16.0 (Ref Range: mg/L) 13.0 (Ref Range: mg/L) 13.0 (Ref Range: mg/L) Microalbum Creatinine Ratio Ur 6.0 (Ref Range: <30 ug/mg cr) 8.0 (Ref Range: <30 ug/mg cr) 6.6 (Ref Range: ug/mg cr) * Examination: G eneral Examination: GENERAL APPEARANCE: [...] normal, no s3, or vascular bruits. LUNGS: , diminished breath sounds throughout, no wheezes, rales, rhonchi, good air movement. BREASTS: no masses palpable bilaterally. ABDOMEN: b owel sounds normal, no ascites, no organomegaly, no mass, centripital obesity. RECTAL EXAM: n ot examined. MUSCULOSKELETAL: e xtremities unremarkable, no clubbing, cyanosis or edemaDecreased range of motion lumbar spine. PERIPHERAL PULSES: n ormal. NEUROLOGIC: a lert and oriented, cranial nerves 2-12 grossly intact, deep tendon reflexes 2+ symmetrical, motor strength normal upper and lower extremities, sensory exam intact. PSYCH: a lert, oriented. Assessment: * Assessment: 1. T ype 2 diabetes mellitus without complications - E11.9 (Primary) N otes :His hemoglobin A1c is less than 7.0. Her medications were continued. I strongly recommended weight loss and smoking cessation. 2 . E ssential hypertension - I10 N otes :His blood pressure is stable and no change in his regimen was needed today. 3 . O ther and unspecified hyperlipidemia - E78.5 N otes :His total cholesterol is 202. No change in his regimen was needed. 4 . O besity (BMI 30.0-34.9) - E66.9 N otes :He has gained several is in the obese range. We discussed connection between weight and diabetic control. We made a plan to lose weight at a rate of 1 pound per week. 5 . L umbar radiculopathy - M54.16 N otes :His low back pain has returned and he saw the neurosurgeon. She sent him for physical therapy. He will be monitored carefully. 6 . B PH (benign prostatic hyperplasia) - N40.0 N otes :He arises from sleep on the average once a night to urinate. No change in his medications was necessary. 7 . T obacco dependence - F17.200 N otes :He continues to smoke cigarettes. I have made him aware of all the health risks involves. He says he will attempt to stop smoking her to cut down the number of cigarettes he uses per day. Plan: * Treatment: 2. E ssential hypertension Continue Lisinopril Tablet, 40 MG, TAKE 1 TABLET BY MOUTH EVERYDAY; C ontinue Atenolol Tablet, 100 MG, TAKE 1 TABLET BY MOUTH EVERYDAY 90; C ontinue Clopidogrel Bisulfate Tablet, 75 MG, 1 tablet, Orally, Once a day; C ontinue Timolol Maleate Solution, 0.5 %, PLACE ONE DROP IN AFFECTED EYE TWICE A DAY, Ophthalmic; C ontinue Aspirin 81 Tablet Delayed Release, 81 MG, 1 tablet, Orally, Once a day. L AB: PROFILE, FASTING (COMPREHENSIVE METABOLIC) L AB: CBC w DIFF L AB: Lipid Panel L AB: Hemoglobin A1c 3. O ther and unspecified hyperlipidemia L AB: PROFILE, FASTING (COMPREHENSIVE METABOLIC) L AB: CBC w DIFF L AB: Lipid Panel L AB: Hemoglobin A1c 4. O besity (BMI 30.0-34.9) L AB: PROFILE, FASTING (COMPREHENSIVE METABOLIC) L AB: CBC w DIFF L AB: Lipid Panel L AB: Hemoglobin A1c * Procedure Codes: * Preventive Medicine: Counseling: C are goal [...] tobacco use and urged to quit. 0 03/18/2025 Patient Lifestyle Goals P atient wants to quit Treatment Goals S et a quit date, Cut down by 1 cigarette a week Barriers S tress, Social smoker Self-Management Plan M nadja a plan to cut down number of cigarettes over time and set a date to work towards quitting DM Care Plan: P atient Lifestyle Goals P atient wants to be able to manage diabetes without too much effort. T reatment Goals H bA1C < 7.0, Blood Sugars less than < 115. B arriers n o barriers. S elf-Managment Goals W ork on weight loss, with a goal of losing 1 lb per week. * Follow Up: 3 Months (Reason: OV) * Images: * Sign off status: Completed true * Provider: Dot Vogel MD Date: 0 03/28/2025 Generated for Georgiana miles/Ankur/eTransmitting on: 1 11:35 AM EDT History and Physical Notes * HPI (History of Present Illness) Category Sub-Category Detail Notes COVID-19 Screening Questions Have you had any new onset fever, chills, cough, congestion, sore throat, shortness of breath, muscle aches?: No Examination Category Sub-Category Detail Notes General Examination [...] normal, no s3, or vascular bruits LUNGS: , diminished breath sounds throughout, no wheezes, rales, rhonchi, good air movement ABDOMEN: bowel sounds normal, no ascites, no organomegaly, no mass, centripital obesity NEUROLOGIC: alert and oriented, cranial nerves 2-12 grossly intact, deep tendon reflexes 2+ symmetrical, motor strength normal upper and lower extremities, sensory exam intact SKIN: no suspicious lesion s, anicteric PERIPHERAL PULSES: normal BREASTS: no masses palpable b ilaterally MUSCULOSKELETAL: extremities unremark able, no clubbing, cyanosis or edemaDecreased range of motion lumbar spine LYMPH NODES: no enlarged lymph no viki,spleen normal RECTAL EXAM: not examined PSYCH: alert, oriented ORAL CAVITY: normal, unremarkable
--- OUTSIDE RECORDS SUMMARY | 2025-04-28 12:45 | XMS_ITS ---
Author Organization Chirag Vogel III, MD Address [address] [place] [address] DR [address] Nick [facility] [place] [address] Care Team Providers Care Entry Level Software Developer Name Role Phone Dr. Chirag Vogel III Primary Care Provider Allergies Allergen (clinical drug ingredient) Drug/Non Drug Allergy documented on EMR Reaction Allergy Type Onset Date Status No Known Drug Allergy Unknown Drug Allergy Active REASON FOR VISIT New Concern Medications Medication SIG (Take, Route, Frequency, Duration) Notes Start Date End Date Status Timolol Maleate 0.5 % PLACE ONE DROP IN AFFECTED EYE TWICE A DAY Ophthalmic Active Aspirin 81 81 MG 1 tablet Orally Once a day Active Atenolol 100 MG TAKE 1 TABLET BY ASAEL TH EVERYDAY 90 Active Clopidogrel Bisulfate 75 MG 1 tablet Ora lly Once a day Active Lisinopril 40 MG TAKE 1 TABLET BY ASAEL TH EVERYDAY Active Social History Tobacco Use: Social History [...] User Heavy cigarett e smoker (20-39 cigs/day) Encounters Encounter Location Date Provider Diagnosis Chirag Vogel III, MD [address] [place] [address] [address] [place] [address] 04/28/2025 Chirag Vogel Essential hypertensi on I10 Assessments Encounter Date Diagnosis (ICD Code) Assessment Notes Treat ment Notes Treatment Clinical Notes 04/28/2025 Essential hypertension (ICD-10 - I10) His blood pressure is stable and no change in his regimen was needed today. Plan Of Treatment Medication Medication Name Sig Start Date Stop Date Notes Timolol Maleate 0.5 % PLACE ONE DROP IN AFFECTED EYE TWICE A DAY Ophthalmic Aspirin 81 81 MG 1 tablet Orally Once a day Atenolol 100 MG TAKE 1 TABLET BY ASAEL TH EVERYDAY 90 Clopidogrel Bisulfate 75 MG 1 tablet Orally Once a day Lisinopril 40 MG TAKE 1 TABLET BY ASAEL TH EVERYDAY Next Appt Details Provider Name:Chirag Vogel , 07/01/2025 09:30:00 AM, [address] [place] [address] [address], [place], [phone], Provider Name:Chirag Vogel , 12/01/2025 09:30:00 AM, [address] [place] [address] [address], [place], [address], Progress Notes * Amari PAREDESDOB: [birth year] (75 yo M)Acc No.[id number]:04/28/2025 Progress Notes Patient: Amari REYES Provider: Dot Vogel MD :1950 A ge:75 Y S ex:Male Date:04/28/2025 Address:[address] [place], [place] [id number] Subjective: * Chief Complaints: * 1 . New Concern. * HPI: C OVID-19 Screening: Questions H ave you had any new onset fever, chills, cough, congestion, sore throat, shortness of breath, muscle aches? N o * ROS: G eneral/Constitutional: pain o nly normal aches and pains, only normal aches and pains. C hills d enies, denies. F atigue a dmits, admits. F ever d enies, denies. E NT: Decreased hearing d enies, denies. R espiratory: Cough d enies, denies. C ardiovascular: Chest pain with exertion d enies, denies. D yspnea on exertion d enies, denies. S hortness of breath d enies, denies. G astrointestinal: Constipation d enies, denies. D ecreased appetite d enies, denies. D iarrhea d enies, denies. H eartburn d enies, denies. N ausea?denies, denies. R ectal bleeding d enies, denies. V omiting d enies, denies.? H ematology: bruising d enies, denies. p etechiae d enies, denies. S wollen glands n one have been noted, none have been noted. G enitourinary: Frequent urination d enies, denies. M usculoskeletal: Muscle aches d enies, denies. P ainful joints d enies, denies. S ciatica d enies, denies. W eakness d enies, denies. S kin: Itching d enies, denies. R nella d enies, denies.?Skin lesion(s) d enies, denies. N eurologic: Difficulty speaking d enies, denies. D izziness d enies, denies. H eadache d enies, denies. L ow back pain d enies, denies. ? P sychiatric: Depressed mood d enies, denies. * Medical History: H ypertension, Hyperlipidemia, Anal fissures, Obesity, Tobacco dependence, Diabetes mellitus type 2, ED, TIA March 2024. * Surgical History: h erniated disc 12/2018, Pressure release procedure, Bilateral eyes 02/2023, Left eye Injection 03/2023. * Hospitalization/Major Diagno stic Procedure: D enies Past Hospitalization. * Family History: F ather: 66 yrs, [...] He enjoys traveling. He was born in [place]. 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 * Medications: T aking Lisinopril 40 MG Tablet TAKE 1 TABLET BY MOUTH EVERYDAY , Taking Atenolol 100 MG Tablet TAKE 1 TABLET BY MOUTH EVERYDAY 90 , Taking Clopidogrel Bisulfate 75 MG Tablet 1 tablet Orally Once a day , Taking Timolol Maleate 0.5 % Solution PLACE ONE DROP IN AFFECTED EYE TWICE A DAY Ophthalmic , Taking Aspirin 81 81 MG Tablet Delayed Release 1 tablet Orally Once a day , Medication List reviewed and reconciled with the patient * Allergies: N o Known Drug Allergy. Objective: * Vitals: * Examination: G eneral Examination: GENERAL APPEARANCE: p leasant, well nourished, well developed, in no acute distress, calm and relaxed. HEAD: a traumatic, normocephalic. EYES: e vanesa, [...] ascites, no organomegaly, no mass. RECTAL EXAM: n ot examined. MUSCULOSKELETAL: e xtremities unremarkable, no clubbing, cyanosis or edema. PERIPHERAL PULSES: n ormal. NEUROLOGIC: a lert and oriented, cranial nerves 2-12 grossly intact, deep tendon reflexes 2+ symmetrical, motor strength normal upper and lower extremities, sensory exam intact. PSYCH: a lert, oriented. Assessment: * Assessment: 1. E ssential hypertension - I10 N otes :His blood pressure is stable and no change in his regimen was needed today. Plan: * Treatment: * Procedure Codes: 9 8012 SYNCH AUDIO-ONLY EST SF 10 * Images: * The named appointment provid er may or may not be the originator of this progress note, and it is not deemed complete until electronically signed by the appointment provider. Sign off status: Pending * Provider: Dot Vogel MD Date: 0 04/28/2025 Generated for Printi ng/Maurog/eTransmitting on: 1 11:35 AM EDT History and Physical Notes * HPI (History of Present Illness) Category Sub-Category Detail Notes COVID-19 Screening Questions Have you had any new onset fever, chills, cough, congestion, sore throat, shortness of breath, muscle aches?: No Examination Category Sub-Category Detail Notes General Examination GENERAL APPEARANCE: pleasant , well nourished, well developed, in no acute distress, calm and relaxed HEAD: atraumatic, normocep halic EYES: eomi, perrla, [...]
[2025-06-24 10:18] LABS: MANUAL DIFF FLAG NO
[2025-06-24 10:33] LABS: Hematocrit 49.9 % (42.0-52.0); Hemoglobin 16.2 g/dl (14.0-18.0); Imm Gran Abs Auto 0.04 X10*3/uL (0.00-0.03); Imm Gran Pct Auto 0.5 % (0.0-0.4); Lymphocytes Absolute Auto 1.7 X10*3/uL (1.2-4.9); Mean Corpuscular HGB Conc 32.5 g/dl (31.0-36.0); Mean Corpuscular Hemoglobin 29.7 pg (27.0-33.0); Mean Corpuscular Volume 91.6 fL (80.0-98.0); NRBC Abs Auto 0.000 X10*3/uL (0.0-0.012); NRBC Pct Auto 0.0 /100WBC (0.0-0.2); Platelet Count 189 X10*3/uL (160-400); Red Blood Count 5.45 X10*6/uL (4.60-5.80); White Blood Count 8.6 X10*3/uL (4.8-10.8)
[2025-06-24 11:32] LABS: Alanine Aminotransferase 19 U/L (0-40); Albumin Level 4.5 g/dL (3.5-5.0); Alkaline Phosphatase 63 U/L (39-117); Anion Gap 11 (12-20); Aspartate Amino Transferase 18 U/L (5-37); Blood Urea Nitrogen 13 mg/dL (9-16); Calcium 9.5 mg/dL (8.4-10.2); Carbon Dioxide 30 mmol/L (22-29); Chloride 108 mmol/L (96-108); Cholesterol 203 mg/dL (<200); Estimated Glomerular Filt Rate > 60; HDL Cholesterol 46 mg/dL (>40); Potassium 4.8 mmol/L (3.3-5.1); Sodium 144 mmol/L (135-145); Total Protein 7.2 g/dL (6.5-8.0); Triglycerides 84 mg/dL (<150)
--- OUTSIDE RECORDS SUMMARY | 2025-06-24 11:35 | XMS_ITS | Patient Health Record ---
Author Organization [facility] Address [address] [place] [address] Care Team Providers Care Visual Merchandising Manager Name Role Phone Chirag Vogel MD Primary Care Provider Unavailab Chirag Starr Unavailable [phone] Allergies No Known Allergies Reason For Referral No Information Medications Medication SIG (Take, Route, Fr equency, Duration) Notes Start Date End Date Status Lisinopril 40 MG 1 tablet Orally Once a day Active ibuprofen Active Atenolol 100 MG TAKE 1 TABLET BY ASAEL EVERYDAY Oral; Duration: 90 Active Social History Tobacco Use: Social [...] Problem Status W/U Status Risk Notes Problem Screening for malignant neoplasm of colon (650561476) Encounter for screening for malignant neoplasm of colon (Z12.11) Active confirmed Problem Preprocedural examination (863550703683196) Preprocedural examination (Z01.818) Active confirmed Plan Of Treatment Future Test Test Name Order Date COLONOSCOPY 02/09/2023 Insurance Providers Payer Name Payer Address Payer Phone Subscriber Number Group Number Insured Name Patient Relationship to Insured Coverage Start Date Coverage End Date [employer] OF [facility] [address] [place] [address] [id number] JOSE HERNANDEZ Self - patient is the insured MEDICARE OF [place] [address] [facility] [place] [address] [id number] JOSE HERNANDEZ Self - patient is the insured Medical (General) History Medical History History ICD Code Hypertension Negative colon[place] [address] Juan Carlos jones Denies [place],DM,CVA,Lung disease,renal dise ase Surgical History Surgery Date(Month/Year) Back surgery 2019 Having laser surgery on left eye 3 /right eye done 01/2023
--- OUTSIDE RECORDS SUMMARY | 2025-06-24 11:35 | XMS_ITS | Patient Health Record ---
Author Organization Chirag Vogel III, MD Address [address] [place] [address] [place] [phone] Care Team Providers Care Child Welfare Consultant Name Role Phone Dr. Chirag Vogel III [...] 0.2 - 1.3 BLD Negative Negative - Complete Blood Count Auto Di ff Reviewed date:11/24/2024 10:08:28 AM Interpretation: Performing Lab:[facility], [address] [place] [phone] Notes/Report: White Blood Count 8.5 4.8-10.8 X10*3/uL Red Blood Count 5.21 4.60-5.80 X10*6/uL Hemoglobin 15.9 14.0-18.0 g/dl Hematocrit 46.8 42.0-52.0 % Mean Corpuscular Volume 89.8 80.0-98.0 fL Mean Corpuscular Hemoglobin 30.5 27.0-33.0 pg Mean Corpuscular HGB Conc 34.0 31.0-36.0 g/dl Red Cell Distribution Width 13.8 11.0-16.0 % Platelet Count 201 160-400 X10*3/uL Mean Platelet Volume 9.8 9.4-12.4 fL Neutrophils Percent Auto 64.6 45-73 % Imm Gran Pct Auto 0.4 0.0-0.4 % Lymphocytes Percent Auto 25.0 20-40 % Monocytes Percent Auto 6.8 2-11 % Eosinophils Percent Auto 2.0 0-4 % Basophils Percent Auto 1.2 0-2 % NRBC Pct Auto 0.0 0.0-0.2 /100WBC Neutrophils Absolute Auto 5.5 2.0-8.3 x10*3/u L Imm Gran Abs Auto 0.03 0.00-0.03 X10*3/uL Lymphocytes Absolute Auto 2.1 1.2-4.9 X10*3/u L Monocytes Absolute Auto 0.6 0.1-1.2 X10*3/uL Eosinophils Absolute Auto 0.2 0.0-0.4 X10*3/u L Basophils Absolute Auto 0.1 0.0-0.2 X10*3/uL NRBC Abs Auto 0.000 0.0-0.012 X10*3/uL Comprehensive [place]arton. Panel Fa st Reviewed date:11/24/2024 10:08:28 AM Interpretation: Performing Lab:[facility], [address] [place] [phone] Notes/Report: Sodium 143 135-145 mmol/L Potassium 4.3 3.3-5.1 mmol/L Chloride 107 96-108 mmol/L Carbon Dioxide 29 22-29 mmol/L Anion Gap 11 12-20 Blood Urea Nitrogen 15 9-16 mg/dL Creatinine 1.04 0.5-1.4 mg/dL Estimated Glomerular Filt Rate > 60 Chronic Kidney Disease: Estimated GFR < 60 mL/min/1.73m2 Severe Kidney Disease: Estimated GFR < 15 mL/min/1.73m2 Glucose Fasting 123 60-99 mg/dL A fasting glucose from 100-125 mg/dl is considered impaired (pre-diabetes). Calcium 9.2 8.4-10.2 mg/dL Bilirubin Total 0.7 0.0-1.0 mg/dL Aspartate Amino Transferase 20 5-37 U/L Alanine Aminotransferase 20 0-40 U/L Total Protein 7.7 6.5-8.0 g/dL Albumin Level 4.3 3.5-5.0 g/dL Alkaline Phosphatase 66 39-117 U/L Lipid Panel Reviewed date:11/24/2024 10:08:28 AM Interpretation: Performing Lab:[address] [phone] Notes/Report: Triglycerides 89 <150 mg/dL Desirable Triglyceride: less than 150 mg/dL Borderline High Triglyceride 150-199 mg/dL High Triglyceride: 200-499 mg/dL Very High Triglyceride: greater than or equal to 5OO mg/dL Cholesterol 198 <200 mg/dL Desirable Cholesterol: less than 200 mg/dL Borderline High Cholesterol: 200-239 mg/dL High Cholesterol: greater than 239 mg/dL LDL Cholesterol Calculated 136 <100 mg/dL Desirable LDL: less than 100 mg/dL Near Optimal/Above Optimal LDL: 110-129 mg/dL Borderline High LDL: 130-159 mg/dL High LDL: 160-189 mg/dL Very High LDL: greater than or equal to 190 mg/dL HDL Cholesterol 45 >40 mg/dL Desirable HDL: greater than 40 mg/dL Note: This HDL assay may give artificially low results in patients with liver disease. Prostate Specific Antigen Reviewed date:11/24/2024 10:08:28 AM Interpretation: Performing Lab:[address] [phone] Notes/Report: Prostate Specific Antigen 0.27 <0.05-4.0 ng/mL PSA methodology: Harrington Alinity i Chemiluminescent Microparticle Immunoassay (CMIA) Complete Blood Count Auto Di ff Reviewed date:03/23/2025 09:35:25 AM Interpretation: Performing Lab:[address] [phone] Notes/Report: White Blood Count 8.5 4.8-10.8 X10*3/uL Red Blood Count 5.05 4.60-5.80 X10*6/uL Hemoglobin 15.4 14.0-18.0 g/dl Hematocrit 44.0 42.0-52.0 % Mean Corpuscular Volume 87.1 80.0-98.0 fL Mean Corpuscular Hemoglobin 30.5 27.0-33.0 pg Mean Corpuscular HGB Conc 35.0 31.0-36.0 g/dl Red Cell Distribution Width 14.3 11.0-16.0 % Platelet Count 185 160-400 X10*3/uL Mean Platelet Volume 9.5 9.4-12.4 fL Neutrophils Percent Auto 69.6 45-73 % Imm Gran Pct Auto 0.2 0.0-0.4 % Lymphocytes Percent Auto 20.9 20-40 % Monocytes Percent Auto 7.0 2-11 % Eosinophils Percent Auto 1.4 0-4 % Basophils Percent Auto 0.9 0-2 % NRBC Pct Auto 0.0 0.0-0.2 /100WBC Neutrophils Absolute Auto 5.9 2.0-8.3 x10*3/u L Imm Gran Abs Auto 0.02 0.00-0.03 X10*3/uL Lymphocytes Absolute Auto 1.8 1.2-4.9 X10*3/u L Monocytes Absolute Auto 0.6 0.1-1.2 X10*3/uL Eosinophils Absolute Auto 0.1 0.0-0.4 X10*3/u L Basophils Absolute Auto 0.1 0.0-0.2 X10*3/uL NRBC Abs Auto 0.000 0.0-0.012 X10*3/uL Comprehensive Wharton. Panel Fa st Reviewed date:03/23/2025 09:35:25 AM Interpretation: Performing Lab:[facility], [address] [place] [phone] Notes/Report: Sodium 140 135-145 mmol/L Potassium 4.4 3.3-5.1 mmol/L Chloride 105 96-108 mmol/L Carbon Dioxide 27 22-29 mmol/L Anion Gap 12 12-20 Blood Urea Nitrogen 17 9-16 mg/dL Creatinine 1.07 0.5-1.4 mg/dL Estimated Glomerular Filt Rate > 60 Chronic Kidney Disease: Estimated GFR < 60 mL/min/1.73m2 Severe Kidney Disease: Estimated GFR < 15 mL/min/1.73m2 Glucose Fasting 140 60-99 mg/dL A fasting glucose of 126 mg/dl or greater on more than one occasion is considered diagnostic of diabetes. Calcium 9.2 8.4-10.2 mg/dL Bilirubin Total 0.7 0.0-1.0 mg/dL Aspartate Amino Transferase 18 5-37 U/L Alanine Aminotransferase 15 0-40 U/L Total Protein 7.3 6.5-8.0 g/dL Albumin Level 4.4 3.5-5.0 g/dL Alkaline Phosphatase 67 39-117 U/L Lipid Panel Reviewed date:03/23/2025 09:35:25 AM Interpretation: Performing Lab:[address] [phone] Notes/Report: Triglycerides 84 <150 mg/dL Desirable Triglyceride: less than 150 mg/dL Borderline High Triglyceride 150-199 mg/dL High Triglyceride: 200-499 mg/dL Very High Triglyceride: greater than or equal to 5OO mg/dL Cholesterol 202 <200 mg/dL Desirable Cholesterol: less than 200 mg/dL Borderline High Cholesterol: 200-239 mg/dL High Cholesterol: greater than 239 mg/dL LDL Cholesterol Calculated 141 <100 mg/dL Desirable LDL: less than 100 mg/dL Near Optimal/Above Optimal LDL: 110-129 mg/dL Borderline High LDL: 130-159 mg/dL High LDL: 160-189 mg/dL Very High LDL: greater than or equal to 190 mg/dL HDL Cholesterol 45 >40 mg/dL Desirable HDL: greater than 40 mg/dL Note: This HDL assay may give artificially low results in patients with liver disease. Prostate Specific Antigen Reviewed date:03/23/2025 09:35:25 AM Interpretation: Performing Lab:[address] [phone] Notes/Report: Prostate Specific Antigen 0.27 <0.05-4.0 ng/mL PSA methodology: Harrington Alinity i Chemiluminescent Microparticle Immunoassay (CMIA) Microalbumin, Random Reviewed date:03/23/2025 09:35:25 AM Interpretation: Performing Lab:[address] [phone] Notes/Report: Creatinine Urine 263.84 Microalbumin Urine 16.0 Microalbum/Creatinine Ratio Ur 6.0 <30 ug/mg cr Albumin/Creatinine Ratio Reference Ranges: Normal: < 30 ug/mg creatinine Microalbuminuria: 30 - 300 ug/mg creatinine Clinical Albuminuria: > 300 ug/mg creatinine Hemoglobin A1c Reviewed date:03/23/2025 09:35:25 AM Interpretation: Performing Lab:[facility], [address] [place] [phone] Notes/Report: Hemoglobin A1c % 6.1 <6.0 % Hemoglobin A1C Reference Range Adults: 4.8 - 6.0 % Non diabetic: < 6.0 % Goal: < 7.0 % Additional Action Suggested: > 8.0 % Note: Hemoglobin A1c results are invalid for patients with abnormal amounts of HbF. Blood transfusions may impact the HbA1c concentration in the patient sample. Estimated Average Glucose 128 eAG = Estimated average glucose which is %A1C expressed as average glucose, using the formula of the [id number] Average Glucose study (ADAG), Diabetes Care, Vol.31,#8, Apr. 2007 Complete Blood Count Auto Di ff (Not yet reviewed by provider) Interpretation: Performing Lab:[facility], [address] [place] [phone] Notes/Report: White Blood Count 8.6 4.8-10.8 X10*3/uL Red Blood Count 5.45 4.60-5.80 X10*6/uL Hemoglobin 16.2 14.0-18.0 g/dl Hematocrit 49.9 42.0-52.0 % Mean Corpuscular Volume 91.6 80.0-98.0 fL Mean Corpuscular Hemoglobin 29.7 27.0-33.0 pg Mean Corpuscular HGB Conc 32.5 31.0-36.0 g/dl Red Cell Distribution Width 14.0 11.0-16.0 % Platelet Count 189 160-400 X10*3/uL Mean Platelet Volume 9.9 9.4-12.4 fL Neutrophils Percent Auto 70.4 45-73 % Imm Gran Pct Auto 0.5 0.0-0.4 % Lymphocytes Percent Auto 19.7 20-40 % Monocytes Percent Auto 6.1 2-11 % Eosinophils Percent Auto 2.1 0-4 % Basophils Percent Auto 1.2 0-2 % NRBC Pct Auto 0.0 0.0-0.2 /100WBC Neutrophils Absolute Auto 6.1 2.0-8.3 x10*3/u L Imm Gran Abs Auto 0.04 0.00-0.03 X10*3/uL Lymphocytes Absolute Auto 1.7 1.2-4.9 X10*3/u L Monocytes Absolute Auto 0.5 0.1-1.2 X10*3/uL Eosinophils Absolute Auto 0.2 0.0-0.4 X10*3/u L Basophils Absolute Auto 0.1 0.0-0.2 X10*3/uL NRBC Abs Auto 0.000 0.0-0.012 X10*3/uL Comprehensive [place]arton. Panel Fa st (Not yet reviewed by provider) Interpretation: Performing Lab:[facility], [address] [place] [phone] Notes/Report: Sodium 144 135-145 mmol/L Potassium 4.8 3.3-5.1 mmol/L Chloride 108 96-108 mmol/L Carbon Dioxide 30 22-29 mmol/L Anion Gap 11 12-20 Blood Urea Nitrogen 13 9-16 mg/dL Creatinine 1.04 0.5-1.4 mg/dL Estimated Glomerular Filt Rate > 60 Chronic Kidney Disease: Estimated GFR < 60 mL/min/1.73m2 Severe Kidney Disease: Estimated GFR < 15 mL/min/1.73m2 Glucose Fasting 133 60-99 mg/dL A fasting glucose of 126 mg/dl or greater on more than one occasion is considered diagnostic of diabetes. Calcium 9.5 8.4-10.2 mg/dL Bilirubin Total 0.6 0.0-1.0 mg/dL Aspartate Amino Transferase 18 5-37 U/L Alanine Aminotransferase 19 0-40 U/L Total Protein 7.2 6.5-8.0 g/dL Albumin Level 4.5 3.5-5.0 g/dL Alkaline Phosphatase 63 39-117 U/L Lipid Panel (Not yet reviewe d by provider) Interpretation: Performing Lab:[facility], [address] [place] [phone] Notes/Report: Triglycerides 84 <150 mg/dL Desirable Triglyceride: less than 150 mg/dL Borderline High Triglyceride 150-199 mg/dL High Triglyceride: 200-499 mg/dL Very High Triglyceride: greater than or equal to 5OO mg/dL Cholesterol 203 <200 mg/dL Desirable Cholesterol: less than 200 mg/dL Borderline High Cholesterol: 200-239 mg/dL High Cholesterol: greater than 239 mg/dL LDL Cholesterol Calculated 141 <100 mg/dL Desirable LDL: less than 100 mg/dL Near Optimal/Above Optimal LDL: 110-129 mg/dL Borderline High LDL: 130-159 mg/dL High LDL: 160-189 mg/dL Very High LDL: greater than or equal to 190 mg/dL HDL Cholesterol 46 >40 mg/dL Desirable HDL: greater than 40 mg/dL Note: This HDL assay may give artificially low results in patients with liver disease. Hemoglobin A1c (Not yet revi ewed by provider) Interpretation: Performing Lab:[facility], [address] [place] [phone] Notes/Report: Hemoglobin A1c % 6.0 <6.0 % Hemoglobin A1C Reference Range Adults: 4.8 - 6.0 % Non diabetic: < 6.0 % Goal: < 7.0 % Additional Action Suggested: > 8.0 % Note: Hemoglobin A1c results are invalid for patients with abnormal amounts of HbF. Blood transfusions may impact the HbA1c concentration in the patient sample. Estimated Average Glucose 126 eAG = Estimated average glucose which is %A1C expressed as average glucose, using the formula of the [id number] Average Glucose study (ADAG), Diabetes Care, Vol.31,#8, Apr. 2007 Reason For Referral No Information Medications Medication SIG (Take, Route, Frequency, Duration) [...] 1 TABLET BY ASAEL TH EVERYDAY Active Immunizations Vaccine Route Administration Date Status Comme nts Influenza IM Intramuscular 06/14/2012 Administered Influenza Unknown 06/14/2014 Administered Pneumococcal Unknown 06/14/2014 Administered Influenza Unknown 06/02/2015 Administered Influenza Unknown 06/07/2016 Administered Influenza no Preserv 3 and > Unknown 04/27/2020 Administered Tdap Unknown 04/27/2020 Administered COVID- 19 Vaccine Unknown 10/21/2020 Administered Influenza-iiv4 p-free high dose Unknown 04/27/2020 Administered Influenza-iiv4 p-free high dose Unknown 05/12/2022 Administered Influenza-iiv4 p-free high dose Unknown 05/12/2021 Administered Td (adult) Unknown 04/01/2017 Administered Influenza-iiv4 p-free high dose Unknown 05/04/2023 Administered COVID Pfizer Bivalent Unknown 01/16/2023 Administered PCV13 Unknown 06/02/2015 Administered COVID Pfizer Bivalent Unknown 05/27/2022 Administered COVID 19 Moderna Unknown 12/20/2021 Administered RSV vaccine, bivalent, protein subunit RSV prefusion F Unknown 06/22/2023 Administered Social History Tobacco Use: Social History Observation [...] User Heavy cigarett e smoker (20-39 cigs/day) Alcohol Screen Question Answer Notes Did you have a drink containing alcohol in the p ast year? No Points 0 Interpretation Negative Problems Problem Type SNOMED Code ICD Code Onset Dates Problem Status W/U Status Risk Notes Problem 500110821776344 Obesity (BMI 30.0-34.9) (E66.9) Active confirmed He has gained several is in the obese range. We discussed connection between weight and diabetic control. We made a plan to lose weight at a rate of 1 pound per week. Problem [id number] Lumbar radiculopathy (M54.16) Active confirmed His low back pain has returned and he saw the neurosurgeon. She sent him for physical therapy. He will be monitored carefully. Problem 31902065 Type 2 diabetes mellitus without complications (E11.9) Active confirmed His hemoglobin A1c is less than 7.0. Her medications were continued. I strongly recommended weight loss and smoking cessation. Problem 762864389 Skin cancer (C44.90) Active confirmed The lesion on his right antecubital fossa was biopsied. The results are not yet available but have been requested. Problem Obesity due to excess calories (126186578) Other obesity due to excess calories (E66.09) Active confirmed He has lost 4 pounds. His body mass index is 30. We reviewed his weight loss strategy and diet and nutrition in detail. Problem Benign prostatic hyperplasia (754942942) BPH (benign prostatic hyperplasia) (N40.0) Active confirmed He arises from sleep on the average once a night to urinate. No change in his medications was necessary. Problem 41466741 Essential hypertension (I10) Active confirmed His blood pressure is stable and no change in his regimen was needed today. Problem 357618110 Erectile dysfunction (N52.9) Active confirmed He has been prescribed medication for this problem. He will be referred to a urologist. If it becomes ineffective. Problem 76519466 Tobacco dependence (F17.200) Active confirmed He continues to smoke cigarettes. I have made him aware of all the health risks involves. He says he will attempt to stop smoking her to cut down the number of cigarettes he uses per day. Problem 73902053 Other and unspecified hyperlipidemia (E78.5) Active confirmed His total cholesterol is 202. No change in his regimen was needed. Problem Transient ischemic attack (575735796) TIA (transient ischemic attack) (G45.9) Active confirmed He has had no additional episodes of neurological deficits. His speech is clear and he has no weakness. He is taking 81 mg of aspirin per day. He had a neurology consultation this morning and was placed on clopidogel in addition to the aspirin. Vital Signs Heart Rate 62 /min 03/28/2025 Temperature 97.4 degrees Fahrenheit 03/28/2025 Blood pressure diastolic 70 mm Hg 03/28/2025 Height 69 in 03/28/2025 Blood pressure systolic 138 mm Hg 03/28/2025 Weight 213 lbs 03/28/2025 BMI 31.45 kg/m2 03/28/2025 Encounters Encounter Location Date Provider Diagnosis Chirag Vogel III, MD [address] [place] [address] [place] [phone] 11/26/2024 Chirag Vogel Essential hypertensi on I10 ; Other and unspecified hyperlipidemia E78.5 ; Erectile dysfunction N52.9 ; Type 2 diabetes mellitus without complications E11.9 ; Other obesity due to excess calories E66.09 ; Lumbar radiculopathy M54.16 and Tobacco dependence F17.200 Chirag Vogel III, MD [address] [place] [address] [place] [phone] 03/28/2025 Chirag Vogel Essential hypertensi on I10 ; Type 2 diabetes mellitus without complications E11.9 ; Other and unspecified hyperlipidemia E78.5 ; Obesity (BMI 30.0-34.9) E66.9 ; Lumbar radiculopathy M54.16 ; BPH (benign prostatic hyperplasia) N40.0 and Tobacco dependence F17.200 Chirag Vogel III, MD [address] [place] [address] DR GUTIERREZ [place], [place] [phone] 08/21/2024 Chirag Vogel Assessments Encounter Date Diagnosis (ICD Code) Assessment [...] and aggressive weight loss and smoking cessation. 03/28/2025 Type 2 diabetes mellitus without complications (ICD-10 - E11.9) His hemoglobin A1c is less than 7.0. Her medications were continued. I strongly recommended weight loss and smoking cessation. 03/28/2025 Essential hypertension (ICD-10 - I10) His blood pressure is stable and no change in his regimen was needed today. 11/26/2024 Erectile dysfunction (ICD-10 - N52.9) He has been prescribed medication for this problem. He will be referred to a urologist. If it becomes ineffective. 03/28/2025 Other and unspecifie d hyperlipidemia (ICD-10 - E78.5) His total cholesterol is 202. No change in his regimen was needed. 11/26/2024 Type 2 diabetes mellitus without complications (ICD-10 - E11.9) His fasting glucose is 123. I have recommended aggressive weight loss and adherence to a low cholesterol diabetic diet. I recommended regular exercise. 03/28/2025 Obesity (BMI 30.0-34.9) (ICD-10 - E66.9) He has gained several is in the obese range. We discussed connection between weight and diabetic control. We made a plan to lose weight at a rate of 1 pound per week. 11/26/2024 Other obesity due to excess calories (ICD-10 - E66.09) He has lost 4 pounds. His body mass index is 30. We reviewed his weight loss strategy and diet and nutrition in detail. 03/28/2025 Lumbar radiculopathy (ICD-10 - M54.16) His low back pain has returned and he saw the neurosurgeon. She sent him for physical therapy. He will be monitored carefully. 11/26/2024 Lumbar radiculopathy (ICD-10 - M54.16) His low back pain has returned and he saw the neurosurgeon. She sent him for physical therapy. He will be monitored carefully. 03/28/2025 BPH (benign prostati c hyperplasia) (ICD-10 - N40.0) He arises from sleep on the average once a night to urinate. No change in his medications was necessary. 11/26/2024 Tobacco dependence (ICD-10 - F17.200) He continues to smoke cigarettes. I have made him aware of all the health risks involves. He says he will attempt to stop smoking her to cut down the number of cigarettes he uses per day. 03/28/2025 Tobacco dependence (ICD-10 - F17.200) He continues to smoke cigarettes. I have made him aware of all the health risks involves. He says he will attempt to stop smoking her to cut down the number of cigarettes he uses per day. Plan Of Treatment Pending Test Test Name Order Date PROFILE, FASTING (COMPREHENSIVE METABOLI C) 09/09/2019 PROFILE, FASTING (COMPREHENSIVE METABOLI C) 04/16/2024 PROFILE, FASTING (COMPREHENSIVE METABOLI C) 12/11/2023 PROFILE, FASTING (COMPREHENSIVE METABOLI C) 05/23/2017 PROFILE, FASTING (COMPREHENSIVE METABOLI C) 02/07/2019 PROFILE, FASTING (COMPREHENSIVE METABOLI C) 09/30/2020 PROFILE, FASTING (COMPREHENSIVE METABOLI C) 04/08/2024 PROFILE, FASTING (COMPREHENSIVE METABOLI C) 07/01/2020 PROFILE, FASTING (COMPREHENSIVE METABOLI C) 10/03/2022 PROFILE, FASTING (COMPREHENSIVE METABOLI C) 12/26/2017 PROFILE, FASTING (COMPREHENSIVE METABOLI C) 03/30/2022 PROFILE, FASTING (COMPREHENSIVE METABOLI C) 03/04/2020 PROFILE, FASTING (COMPREHENSIVE METABOLI C) 11/26/2024 PROFILE, FASTING (COMPREHENSIVE METABOLI C) 06/24/2021 PROFILE, FASTING (COMPREHENSIVE METABOLI C) 08/28/2017 PROFILE, FASTING (COMPREHENSIVE METABOLI C) 03/28/2025 PROFILE, RANDOM (COMPREHENSIVE METABOLIC ) 01/02/2023 HEMOGLOBIN A1C (GLYCOHEMOGLOBIN) 021 HEMOGLOBIN A1C (GLYCOHEMOGLOBIN) 017 HEMOGLOBIN A1C (GLYCOHEMOGLOBIN) 019 HEMOGLOBIN A1C (GLYCOHEMOGLOBIN) 017 HEMOGLOBIN A1C (GLYCOHEMOGLOBIN) 019 HEMOGLOBIN A1C (GLYCOHEMOGLOBIN) 020 HEMOGLOBIN A1C (GLYCOHEMOGLOBIN) 023 HEMOGLOBIN A1C (GLYCOHEMOGLOBIN) 023 HEMOGLOBIN A1C (GLYCOHEMOGLOBIN) 020 LIPID PANEL 10/03/2022 LIPID PANEL 03/04/2020 LIPID PANEL 06/24/2021 LIPID PANEL 08/28/2017 LIPID PANEL 09/09/2019 LIPID PANEL 09/30/2020 LIPID PANEL 05/23/2017 LIPID PANEL 02/07/2019 LIPID PANEL 12/26/2017 LIPID PANEL 07/01/2020 PSA, TOTAL 11/26/2024 PSA, TOTAL 04/16/2024 PSA, TOTAL 06/24/2021 PSA, TOTAL 12/11/2023 PSA, TOTAL 04/08/2024 PSA, TOTAL 03/30/2022 MICROALBUMIN, RANDOM 10/03/2022 CBC w DIFF 01/02/2023 CBC w DIFF 12/26/2017 CBC w DIFF 07/01/2020 CBC w DIFF 03/30/2022 CBC w DIFF 03/28/2025 CBC w DIFF 11/26/2024 CBC w DIFF 03/04/2020 CBC w DIFF 10/03/2022 CBC w DIFF 08/28/2017 CBC w DIFF 06/24/2021 CBC w DIFF 09/09/2019 CBC w DIFF 09/30/2020 CBC w DIFF 04/08/2024 CBC w DIFF 05/23/2017 CBC w DIFF 02/07/2019 URINE CULTURE 04/13/2023 SCREENING COLONOSCOPY 01/21/2013 XR CHEST 2 VIEW PA & LAT 04/16/2024 CBC WITH AUTO DIFF 04/16/2024 CBC WITH AUTO DIFF 12/11/2023 Complete Blood Count Auto Diff Comprehensive Wharton. Panel Fast Lipid Panel 03/30/2022 Lipid Panel 03/28/2025 Lipid Panel 11/26/2024 Lipid Panel 06/24/2025 Lipid Panel 12/11/2023 Lipid Panel 04/08/2024 Microalbumin, Random 03/30/2022 Microalbumin, Random 11/26/2024 Microalbumin, Random 12/11/2023 Hemoglobin A1c 12/11/2023 Hemoglobin A1c 03/28/2025 Hemoglobin A1c 11/26/2024 Hemoglobin A1c 06/24/2025 UA ClnCatch+Micro w/rflx Cult 04/13/2023 Next Appt Details Provider Name:Chirag Vogel , 07/01/2025 09:30:00 AM, [address] [place] [address] [address], [place], [phone], Provider Name:Chirag Vogel , 12/01/2025 09:30:00 AM, [address] [place] [address] [address], [place], [phone], Insurance Providers Payer Name Payer Address Payer Phone Subscriber Number Group Number Insured Name Patient Relationship to Insured Coverage Start Date Coverage End Date [facility] [address] [place], [place] [id number] Amari Ivory Self - patient is the insured MEDICARE NGS [address] [place] [address] [id number] Amari Ivory Self - patient is the insured Medical (General) History Medical History History ICD Code hypertension hyperlipidemia anal fissures obesity tobacco dependence diabetes mellitus type 2 ED TIA March 2024 Surgical History Surgery Date(Month/Year) Left eye Injection 03/2023 Pressure release procedure, Bilateral ey es 02/2023 herniated disc 12/2018
== END 2025-06-24 10:04 | disposition home or self-care (01) ==
LOC: HO.LAB 10:03
PROVIDERS: PCP Internal Medicine Medical Oncology; Visit Provider Internal Medicine Medical Oncology
DX: I10 Essential (primary) hypertension (principal); E11.9 Type 2 diabetes mellitus without complications; E66.9 Obesity, unspecified; E78.5 Hyperlipidemia, unspecified
CPT/HCPCS: 36415; 80053; 80061; 83036; 85025